=== PATIENT | female | born 1985 | race Caucasian/White ===

== ENCOUNTER 2021-06-16 06:38 | Observation (INO) | payer MEDICAID, SELFPAY ==
[2021-06-16] VITALS (9 sets, daily range): BP systolic 108–148; BP diastolic 59–87; PULSE 72–89; RESP 16–22; TEMP 36.1–37; O2SAT 97–100; BMI 55.7
--- NOTE | 2021-06-16 06:39 | DI.RAD.S_ITS ---
PROCEDURE: XR CHEST 1V INDICATIONS: chest pain TECHNIQUE: One view of the chest was acquired. COMPARISON: None. FINDINGS: Surgical changes and devices: None. Lungs and pleura: Lungs are clear. No pleural effusions or pneumothorax. Mediastinum: Mediastinal contours appear normal. Heart size is normal. Bones and chest wall: No suspicious bony lesions. Overlying soft tissues appear unremarkable. IMPRESSION: No evidence acute pulmonary process. Comment: Final report is concordant with preliminary interpretation provided by [facility]. Dictated by: Raji Hughes M.D. on 06/16/2021 at 8:03 Approved by: Raji Hughes M.D. on 06/16/2021 at 8:04
--- NOTE | 2021-06-16 06:39 | DI.US.S_ITS ---
PROCEDURE: US ABDOMEN LIMITED INDICATIONS: RUQ PAIN TECHNIQUE: Real-time scanning was performed of the abdominal and retroperitoneal organs, with image documentation. COMPARISON: None. FINDINGS: Liver: Liver is at the upper limits of normal measuring 16.9 cm with increased echotexture. Gallbladder: Gallbladder demonstrates a 5 mm focus of increased echogenicity within the neck. Wall thickness is within normal limits measuring 1.6 mm. There is a positive sonographic Avila sign. Biliary ducts: Intrahepatic bile ducts are non-dilated. Extrahepatic bile duct caliber measures 4.6 mm. Normal is 6-7 mm or less in diameter, or 10 mm or less post-cholecystectomy. IMPRESSION: 1. Cholelithiasis without imaging evidence of cholecystitis. It is noted the stone appears to be within the gallbladder neck. No biliary obstruction. Dictated by: Yessenia Lee M.D. on 06/16/2021 at 9:03 Approved by: Yessenia Lee M.D. on 06/16/2021 at 9:04
--- NOTE | 2021-06-16 06:40 | ED.CHESTPAIN ---
HPI - Chest Pain General Stated Complaint: c/p Time Seen by Provider: 06/16/21 06:38 History of Present Illness HPI narrative: Patient is a 35-year-old female history of congestive heart failure Course Orders Ordered: ED Orders 06/16/21 06:39 US abdomen limited Stat XR chest 1V Stat Complete Blood Count AUTO DIFF Stat Comprehensive Metabolic Panel Stat Lipase Stat Troponin & CK Cardiac Panel Stat EKG-12 Lead Stat
[2021-06-16 07:18] LABS: Add Manual Diff / Slide Review NO; Basophils Absolute Auto 0 /uL (0-100); Basophils Percent Auto 0.7 % (0-2); Eosinophils Absolute Auto 100 /uL (0-450); Eosinophils Percent Auto 2.4 % (2-4); Hematocrit 40.6 % (36-46); Hemoglobin 13.7 g/dL (12.0-16.0); Lymphocytes Absolute Auto 2100 /uL (1100-4500); Lymphocytes Percent Auto 47.2 % (25-40); Mean Corpuscular HGB Conc 33.7 % (30-36); Mean Corpuscular Hemoglobin 27.7 PG (26-34); Mean Corpuscular Volume 82.3 fL (80-100); Monocytes Absolute Auto 400 /uL (0-900); Monocytes Percent Auto 8.4 % (3-14); Neutrophils Absolute Auto 1900 /uL (1500-7000); Neutrophils Percent Auto 41.3 % (50-75); Platelet Count 239 X10^3/uL (150-400); Red Blood Cell Count 4.93 X10^6/uL (4.0-5.2); Red Cell Distribution Width 13.5 % (11.6-14.8); White Blood Cell Count 4.5 X10^3/uL (4.5-11.0)
[2021-06-16 07:27] LABS: Alanine Aminotransferase 39 IU/L (<35); Albumin Globulin Ratio 1.3 (1.0-2.8); Alkaline Phosphatase 91 U/L (38-126); Aspartate Aminotransferase 38 IU/L (14-36); BUN Creatinine Ratio 14.3 (6-22); Bilirubin Total 0.5 mg/dL (0.2-1.3); Blood Urea Nitrogen 10 mg/dL (7-17); Calcium 9.9 mg/dL (8.4-10.2); Carbon Dioxide 29 mmol/L (22-32); Chloride 107 mmol/L (98-107); Creatine Kinase 64 U/L (30-135); Estimated Glomerular Filt Rate > 60.0 mL/min (>60); Globulin 3.1 g/dL (1.7-4.1); Glucose 105 mg/dL (70-100); HEMOLYSIS 34 (0-50); Lipase 56 U/L (23-300); Potassium 4.1 mmol/L (3.4-5.1); Sodium 142 mmol/L (137-145); Total Protein 7.1 g/dL (6.3-8.2)
[2021-06-16] MEDS: LORazepam 0.5 MG TABLET 1 MG PO (07:29)
--- NOTE | 2021-06-16 07:37 | ED.ABDPAIN ---
HPI - Abdominal Pain General Chief Complaint: Abdominal Pain Stated Complaint: c/p Time Seen by Provider: 06/16/21 06:38 Source: patient and EMS Mode of arrival: EMS History of Present Illness HPI narrative: 35-year-old female nonsmoker with medical history of CHF, breast cancer (she takes nightly oral chemotherapy) presents with right upper quadrant pain and radiation to her back that has been worsening over the past few days. It gets worse when she moves and when she eats. She is nauseated and has a poor appetite. She denies any gallbladder history. She takes no blood thinners. She has been NPO since 6 or 7:00 p.m. last night. She has nausea but denies any vomiting. Related Data Home Medications Medication Instructions Recorded Confirmed albuterol sulfate 90 mcg/actuation 1 puff INHALATION PRN PRN 06/16/21 06/16/21 aerosol inhaler aspirin 81 mg chewable tablet 81 mg PO DAILY 06/16/21 06/16/21 atorvastatin 40 mg tablet 40 mg PO BEDTIME 06/16/21 06/16/21 exemestane 25 mg tablet 25 mg PO BEDTIME 06/16/21 06/16/21 gabapentin 300 mg capsule 900 mg PO TID 06/16/21 06/16/21 hydrocodone 10 mg-acetaminophen 1 tab PO BEDTIME 06/16/21 06/16/21 325 mg tablet ibuprofen 600 mg tablet 600 mg PO BEDTIME 06/16/21 06/16/21 ketoconazole 2 % topical cream 1 applic TOPICAL PRN PRN 06/16/21 06/16/21 ondansetron HCl 4 mg tablet 4 mg PO PRN PRN 06/16/21 06/16/21 Allergies Allergy/AdvReac Type Severity Reaction Status Date / Time vancomycin Allergy Unknown Verified 06/16/21 15:18 avocado Allergy Anaphylaxis Verified 06/16/21 15:18 citalopram Allergy Hives Verified 06/16/21 15:18 hydroxyzine Allergy Hives Verified 06/16/21 15:18 phenazopyridine Allergy Hives Verified 06/16/21 15:18 ketamine AdvReac Hallucinati Verified 06/16/21 15:18 ng Review of Systems Review of Systems Narrative: GENERAL: Denies chills, fatigue, malaise, fever, sweats. HEENT: Denies sinus pain, ear pain, sore throat, difficulty swallowing, dizziness. RESPIRATORY: Denies dyspnea, cough, wheezing, hemoptysis, sputum. CARDIOVASCULAR: Denies chest pain, palpitations, orthopnea, edema, GASTROINTESTINAL: See HPI : Denies dysuria, frequency, incontinence, hematuria, urinary retention. MUSCULOSKELETAL: denies weakness, joint pain, or bony pain SKIN: Denies rash, skin lesions, or other NEUROLOGIC: Denies weakness, headache, numbness, change in speech, confusion, seizures, incoordination. PSYCHIATRIC: No concerning psychosocial issues. 12 point review of systems is negative except for those stated above Patient History Social History household members: family Smoking Status: Never smoker alcohol intake: current Smoking Status: Never smoker Substance Use Type: does not use Exam Narrative Exam Narrative: GENERAL: [35 year old patient appears stated age. Well-developed patient, in mild distress. Obviously uncomfortable, lying on her side and rubbing her abdomen HEAD: Atraumatic. Normocephalic. EYES: Pupils equal round and reactive. Extraocular motions intact. No scleral icterus. No injection or drainage. ENT: Nose without bleeding, purulent drainage. Throat without erythema, tonsillar hypertrophy or exudate. Airway patent. NECK: Trachea midline. Non tender CARDIOVASCULAR: Regular rate and rhythm without murmurs, gallops, or rubs. RESPIRATORY: Clear to auscultation. Breath sounds equal bilaterally. No wheezes, rales, or rhonchi. GASTROINTESTINAL: Abdomen soft, tender in the epigastrium and right upper quadrant nondistended. EXTREMITIES: No edema or joint tenderness. BACK: Nontender without deformity or crepitance. No flank tenderness. NEURO: AOx3. SKIN: No rash or erythema of visible areas Initial Vital Signs Initial Vital Signs: Vital Signs Temperature 98.3 F 06/16/21 07:12 Pulse Rate 78 06/16/21 07:12 Respiratory Rate 22 06/16/21 07:12 Blood Pressure 148/70 H 06/16/21 07:12 Pulse Oximetry 98 06/16/21 07:12 Course Orders Ordered: ED Orders 06/16/21 07:10 Complete Blood Count AUTO DIFF Stat Comprehensive Metabolic Panel Stat Lipase Stat Troponin & CK Cardiac Panel Stat 06/16/21 09:13 COVID19 -Nasal swab/Pre-Proc Stat Hydromorphone HCl (Hydromorphone 1 Mg Inj) 1 mg IV Q1H PRN PRN Reason: Pain, Moderate (4-6) Last Admin: 06/16/21 14:05 Dose: 1 mg Documented by: PACO Lactated Ringer's (Lactated Ringers) 1,000 mls @ 42 mls/hr IV NOW ONE Stop: 06/17/21 15:38 Last Admin: 06/16/21 15:50 Dose: 42 mls/hr Documented by: CHRISTINA Discontinued Medications Hydromorphone HCl (Hydromorphone 0.5 Mg Inj) 0.5 mg IV NOW ONE Stop: 06/16/21 09:15 Last Admin: 06/16/21 09:46 Dose: 0.5 mg Documented by: IBAN Hydromorphone HCl (Hydromorphone 0.5 Mg Inj) 0.5 mg IV NOW ONE Stop: 06/16/21 10:29 Last Admin: 06/16/21 10:30 Dose: 0.5 mg Documented by: IBAN Lorazepam (Lorazepam 0.5 Mg Tablet) 1 mg PO NOW ONE Stop: 06/16/21 06:44 Last Admin: 06/16/21 07:29 Dose: 1 mg Documented by: LEONORA Ondansetron HCl (Ondansetron 4 Mg/2 Ml Inj) 4 mg IV NOW ONE Stop: 06/16/21 09:15 Last Admin: 06/16/21 09:45 Dose: 4 mg Documented by: IBAN Vital Signs Vital signs: Vital Signs - 8 hr 06/16/21 09:49 06/16/21 10:00 06/16/21 10:30 Pulse Rate 89 74 72 Respiratory Rate 18 16 18 Blood Pressure 133/87 116/71 Pulse Oximetry 100 97 100 MDM - Abdominal Pain Lab Data Result diagrams: 06/16/21 07:10 06/16/21 07:10 Labs: Lab Results 06/16/21 06/16/21 06/16/21 Range/Units 07:10 07:10 09:13 WBC 4.5 (4.5-11.0) X10^3/uL RBC 4.93 (4.0-5.2) X10^6/uL Hgb 13.7 (12.0-16.0) g/dL Hct 40.6 (36-46) % MCV 82.3 (80-100) fL MCH 27.7 (26-34) PG MCHC 33.7 (30-36) % RDW 13.5 (11.6-14.8) % Plt Count 239 (150-400) X10^3/uL Neut % (Auto) 41.3 L (50-75) % Lymph % (Auto) 47.2 H (25-40) % [place] % (Auto) 8.4 (3-14) % Eos % (Auto) 2.4 (2-4) % Baso % (Auto) 0.7 (0-2) % Neut # (Auto) 1900 (1687-4138) /uL Lymph # (Auto) 2100 (1350-7890) /uL [place] # (Auto) 400 (0-900) /uL Eos # (Auto) 100 (0-450) /uL Baso # (Auto) 0 (0-100) /uL Sodium 142 (137-145) mmol/L Potassium 4.1 (3.4-5.1) mmol/L Chloride 107 (98-107) mmol/L Carbon Dioxide 29 (22-32) mmol/L BUN 10 (7-17) mg/dL Creatinine 0.70 (0.52-1.04) mg/dL Estimated GFR > 60.0 (>60) mL/min BUN/Creatinine Ratio 14.3 (6-22) Glucose 105 H (70-100) mg/dL Calcium 9.9 (8.4-10.2) mg/dL Total Bilirubin 0.5 (0.2-1.3) mg/dL AST 38 H (14-36) IU/L ALT 39 H (<35) IU/L Alkaline Phosphatase 91 (38-126) U/L Total Creatine Kinase 64 (30-135) U/L CK-MB (CK-2) TNP CK-MB (CK-2) Rel Index TNP Troponin I < 0.012 (0.01-0.034) ng/mL Total Protein 7.1 (6.3-8.2) g/dL Albumin 4.0 (3.5-5.0) g/dL Globulin 3.1 (1.7-4.1) g/dL Albumin/Globulin Ratio 1.3 (1.0-2.8) Lipase 56 (23-300) U/L SARS-CoV-2 (PCR) Negative (Negative) Point of care testing: Point of Care Testing Test Results Not applicable Imaging Data US - abdomen: Radiologist's Impression: gallstone stuck in the the GB neck Discharge Plan Departure Patient Disposition: Admitted as Observation Clinical Impression: Gallbladder pain Admit Date/Time: 06/16/21 10:35 Admit Provider: Erick Moss
[2021-06-16 07:39] LABS: Troponin I < 0.012 ng/mL (0.01-0.034)
[2021-06-16 09:31] LABS: COVID19 -Nasal RAPID Negative (Negative)
[2021-06-16] MEDS: ONDANSETRON 4 MG/2 ML INJ IV ×2 (09:45→23:25)
[2021-06-16] MEDS: HYDROMORPHONE 0.5 MG INJ IV ×2 (09:46→10:30)
[2021-06-16] MEDS: HYDROMORPHONE 1 MG INJ IV ×4 (14:05→23:25)
[2021-06-16] MEDS: LACTATED RINGERS 1,000 ML 42 ML IV (15:50)
--- NOTE | 2021-06-16 18:37 | PM.HP.1 ---
History of Present Illness History of Present Illness Date Patient Seen: 06/16/21 Time Patient Seen: 18:38 Chief complaint: Epigastric and right upper quadrant pain Narrative: The patient is a 35-year-old morbidly obese woman who presented to the emergency department with epigastric pain and chest pain that radiated around to her back. She was found to have gallstones and a positive Avila sign. She reports that she has not had this type of pain before. An ultrasound showed gallstones. Patient History Comment: Breast cancer, heart failure which she reports is secondary to a medication error at [facility] few years back during which she was given epinephrine Family & Social History Social History: household members family Prior Living Arrangements Mobile home Safety & Behavioral: Feels Safe in Current Yes Environment Been Physically Hurt or No Threatened By a Person Suicidal Ideation Description None Suicide Plan Description No Plan Tobacco & Substance use: Smoking Status Never smoker alcohol intake current alcohol intake frequency holiday/special occasion Substance Use Type does not use Meds Home Medications and Allergies Home Medications Medication Instructions Recorded Confirmed Type albuterol sulfate 90 mcg/actuation 1 puff INHALATION PRN PRN 06/16/21 06/16/21 History aerosol inhaler aspirin 81 mg chewable tablet 81 mg PO DAILY 06/16/21 06/16/21 History atorvastatin 40 mg tablet 40 mg PO BEDTIME 06/16/21 06/16/21 History exemestane 25 mg tablet 25 mg PO BEDTIME 06/16/21 06/16/21 History gabapentin 300 mg capsule 900 mg PO TID 06/16/21 06/16/21 History hydrocodone 10 mg-acetaminophen 1 tab PO BEDTIME 06/16/21 06/16/21 History 325 mg tablet ibuprofen 600 mg tablet 600 mg PO BEDTIME 06/16/21 06/16/21 History ketoconazole 2 % topical cream 1 applic TOPICAL PRN PRN 06/16/21 06/16/21 History ondansetron HCl 4 mg tablet 4 mg PO PRN PRN 06/16/21 06/16/21 History Allergies Allergy/AdvReac Type Severity Reaction Status Date / Time vancomycin Allergy Unknown Verified 06/16/21 15:18 avocado Allergy Anaphylaxis Verified 06/16/21 15:18 citalopram Allergy Hives Verified 06/16/21 15:18 hydroxyzine Allergy Hives Verified 06/16/21 15:18 phenazopyridine Allergy Hives Verified 06/16/21 15:18 ketamine AdvReac Hallucinati Verified 06/16/21 15:18 ng Exam Vital Signs (past 8 hours): - 06/16/21 11:00 06/16/21 11:20 06/16/21 15:29 Temperature 97.0 F L 98.3 F Pulse Rate 72 77 88 Respiratory Rate 18 18 17 Blood Pressure 112/74 116/59 L 114/73 Pulse Oximetry 98 99 100 Oxygen Delivery Method Room Air Const Nutritional Appearance: obese Resp Effort & Inspection: normal respiratory effort GI Palpation: tender (In the right upper quadrant) Neuro Speech: speech normal Psych Affect: anxious affect Objective Labs Result Diagrams: 06/16/21 07:10 06/16/21 07:10 Labs: Laboratory Results - last 24 hr 06/16/21 06/16/21 06/16/21 07:10 07:10 09:13 WBC 4.5 RBC 4.93 Hgb 13.7 Hct 40.6 MCV 82.3 MCH 27.7 MCHC 33.7 RDW 13.5 Plt Count 239 Neut % (Auto) 41.3 L Lymph % (Auto) 47.2 H [place] % (Auto) 8.4 Eos % (Auto) 2.4 Baso % (Auto) 0.7 Neut # (Auto) 1900 Lymph # (Auto) 2100 [place] # (Auto) 400 Eos # (Auto) 100 Baso # (Auto) 0 Sodium 142 Potassium 4.1 Chloride 107 Carbon Dioxide 29 BUN 10 Creatinine 0.70 Estimated GFR > 60.0 BUN/Creatinine Ratio 14.3 Glucose 105 H Calcium 9.9 Total Bilirubin 0.5 AST 38 H ALT 39 H Alkaline Phosphatase 91 Total Creatine Kinase 64 CK-MB (CK-2) TNP CK-MB (CK-2) Rel Index TNP Troponin I < 0.012 Total Protein 7.1 Albumin 4.0 Globulin 3.1 Albumin/Globulin Ratio 1.3 Lipase 56 SARS-CoV-2 (PCR) Negative Assessment & Plan Assessment and plan (1) Gallstones: Status: Acute Plan We will plan to perform a laparoscopic cholecystectomy tomorrow morning we reviewed the risks and benefits and she would like to proceed. COVID-19 COVID-19 status: Negative Result date/Date tested (Pos, Neg/Pending): 06/16/21 Time Spent With Patient Critical Care time: I spent a total of [] minutes of critical care time on this patient's care today; this time is exclusive of procedural time.
[2021-06-16] MEDS: LACTATED RINGERS 1,000 ML 100 ML IV (19:05)
[2021-06-17] VITALS (12 sets, daily range): BP systolic 94–149; BP diastolic 53–94; PULSE 67–113; RESP 14–22; TEMP 36.3–36.7; O2SAT 93–100; BMI 55.7
--- NOTE | 2021-06-17 | PATH_ITS ---
[facility] Accession Number: [id number] No. of containers..01 Tissue . 01 Material submitted: . gallbladder - GALLBLADDER . 02 Diagnosis: Gallbladder, Cholecystectomy: Chronic cholecystitis with cholesterolosis. No choleliths identified. Negative for dysplasia and malignancy. [facility] 06/21/2021 1513 Local . 02 Electronically signed: . Ashley Gibson MD, Pathologist NPI- [id number] . 01 Gross description: . The specimen is received in formalin, labeled with the patient's name and gallbladder, and consists of a 5.5 x 1.7 x 1.5 cm gallbladder with a stapled 0.4 cm in diameter cystic duct. The serosa is reyna-lepe and focally hemorrhagic. Opening reveals bile. Choleliths are not identified. The mucosa is green, bile-tinged and smooth. Masses/polyps are not identified. Wall thickness is 0.1 cm. Lead Cook sections are submitted to include the en face cystic duct margin (blue) and bank representative sections of the gallbladder wall. . A1: Cystic duct margin, 1 piece. A2: Lead Cook sections of the gallbladder, 3 pieces. ([id number]) /MRV 06/20/2021 1007 Local . 02 Pathologist provided ICD-10: K81.1 . 02 CPT . 465773 Specimen Comment: A courtesy copy of this report has been sent to [facility] Pathology Performed at: [address] [facility] Cytology [address] [place] [address], [place], [place] [id number] MD Holland Doty MD Phone: [phone] Performed at: 02 [facility] [address] [place] [address] [id number] Gibson MD Phone: [phone]
[2021-06-17] MEDS: HYDROCODONE/ACET 5/325 TABLET 1 TAB PO ×2 (00:05→15:03)
[2021-06-17] MEDS: HYDROMORPHONE 1 MG INJ IV ×6 (02:43→20:27)
[2021-06-17 08:59] LABS: Add Manual Diff / Slide Review NO; Basophils Absolute Auto 0 /uL (0-100); Basophils Percent Auto 0.3 % (0-2); Eosinophils Absolute Auto 100 /uL (0-450); Eosinophils Percent Auto 3.6 % (2-4); Hematocrit 38.8 % (36-46); Lymphocytes Absolute Auto 1200 /uL (1100-4500); Lymphocytes Percent Auto 45.6 % (25-40); Mean Corpuscular HGB Conc 33.6 % (30-36); Mean Corpuscular Hemoglobin 27.5 PG (26-34); Mean Corpuscular Volume 81.8 fL (80-100); Monocytes Absolute Auto 300 /uL (0-900); Neutrophils Absolute Auto 1000 /uL (1500-7000); Neutrophils Percent Auto 38.5 % (50-75); Platelet Count 213 X10^3/uL (150-400); Red Blood Cell Count 4.75 X10^6/uL (4.0-5.2); Red Cell Distribution Width 13.5 % (11.6-14.8); White Blood Cell Count 2.6 X10^3/uL (4.5-11.0)
[2021-06-17 09:16] LABS: Alanine Aminotransferase 43 IU/L (<35); Albumin 3.6 g/dL (3.5-5.0); Albumin Globulin Ratio 1.3 (1.0-2.8); Alkaline Phosphatase 88 U/L (38-126); Aspartate Aminotransferase 39 IU/L (14-36); BUN Creatinine Ratio 12.3 (6-22); Bilirubin Total 0.6 mg/dL (0.2-1.3); Blood Urea Nitrogen 10 mg/dL (7-17); Calcium 9.2 mg/dL (8.4-10.2); Carbon Dioxide 30 mmol/L (22-32); Chloride 106 mmol/L (98-107); Estimated Glomerular Filt Rate > 60.0 mL/min (>60); Globulin 2.8 g/dL (1.7-4.1); Glucose 98 mg/dL (70-100); HEMOLYSIS < 15 (0-50); Sodium 139 mmol/L (137-145); Total Protein 6.4 g/dL (6.3-8.2)
--- NOTE | 2021-06-17 09:27 | CM.DANOTE ---
DCP: Case received, EMR reviewed and met with patient. Introduced self and role. Was able to obtain informatin regarding patient's baseline activity status prior to hospitalization. DCP assessment completed with information currently available. Patient is a 35 year old female who admitted yesterday morning to the care of the hospitalist team. PCP: Dr. Patel. Payer: confirmed: Medicaid. Patient came to the hospital via ambulance. She initially was driving, and developed some chest pain. According to patient, she then pulled over and called 911. She stated, she was worried, because she has a cardiac history. Patient was diagnosed with cholechysitis, and is scheduled to have a laparoscopic cholecystectomy today. Met with patient in her room. She is alert and oriented. She resides with room mates in [place]. 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 P: DCP to continue to follow. Patient will be having her surgery today. She should be able to go home when she is deemed medically stable. Marie Paniagua RN/Air Conditioning Supervisor Discharge Planning/Care Management CM Discharge Assessment Start: 06/17/21 09:26 Freq: Status: Active Protocol: Document 06/17/21 09:26 (Rec: 06/17/21 09:27 [id number]) Discharge Planning Assessment Assigned Factory Supervisor Marie Paniagua RN/Air Conditioning Supervisor Advance Directives? No History Provided By Patient,Medical Record Prior Living Arrangements Mobile home Household Members family Type of transporation used prior to Drives own vehicle admit Independent with ADL's Yes Is patient alert and oriented? Yes Caregiver for Another No Barriers to Discharge No Discharge Plan Home Transportation Arrangement Friend or family Referrals Initiated None needed Whiteboard Updated in Patient Room with Yes name and ext. # of Factory Supervisor Review Status In Process Next Review Type Continued Stay Review
[2021-06-17] MEDS: LACTATED RINGERS 1,000 ML 42 ML IV ×2 (10:36→15:09)
[2021-06-17] MEDS: ACETAMINOPHEN 325 MG TABLET 975 MG PO (12:03)
[2021-06-17] MEDS: SCOPOLAMINE 1 PATCH TOP (12:11)
[2021-06-17] MEDS: APREPITANT 40 MG CAPSULE PO (12:11)
[2021-06-17] MEDS: CEFAZOLIN 2 GM/20 ML SYRINGE IV (12:35)
--- NOTE | 2021-06-17 13:04 | SUR.OPER ---
Supine on padded OR bed, head on pillow, safety belt at thigh, left arm padded and tucked at side. Right arm secured on padded arm board <90 degrees abduction. Legs uncrossed. Padded footboard in place. Tape over blanket to secure lower legs.
[2021-06-17] MEDS: LIDOCAINE 1% W/EPI 20 ML INJ (13:21)
[2021-06-17] MEDS: BUPIVACAINE 0.5% (PF) VIAL 30 ML INJ (13:23)
[2021-06-17] MEDS: LACTATED RINGERS 1,000 ML 100 ML IV (13:40)
--- NOTE | 2021-06-17 14:16 | PM.OP.1 ---
Operative Date/Time/Diagnoses Date of procedure: 06/17/21 Time of procedure: 14:16 Pre-op diagnosis: Symptomatic cholelithiasis Post-op diagnosis: same Procedure & Clinicians Procedure: Laparoscopic cholecystectomy Same procedure as scheduled: Yes Indications: Gallstones Surgeon: Erick Moss Anesthesia Type: General Operative Notes Procedure in detail: The patient was given preoperative antibiotic. The patient was brought to the operating room, placed on the table in the supine position. General endotracheal anesthesia was induced. The abdomen was prepped and draped. A time-out was performed. We made a 1 cm infraumbilical incision. We dissected down to the base of the umbilical stalk using cautery. We grasped the umbilical stalk with a David clamp to elevate the abdominal wall. We scored the fascia in the midline with cautery 1 cm. We pierced the peritoneum with a Peon clamp. The Sylvester port was placed and the abdomen was insufflated to 15 mmHg. A 10 mm 30 degree laparoscopic was inserted. There was no evidence of any injury from the entry. Next, we placed 5 mm ports in the subxiphoid position and right upper quadrant at the midclavicular line and anterior axillary line. Patient was then positioned in reverse Trendelenburg and the table was tilted to the left. The gallbladder was grasped at the dome and retracted cephalad. There were some adhesions of omentum to the dome of the gallbladder which were carefully dissected with cautery to allow full retraction of the gallbladder. We then dissected the cystic structures with a combination of hook cautery and blunt dissection. We obtained a critical view. We placed hemoclips on the cystic duct and artery and divided the cystic duct and artery sharply between the clips. The gallbladder was then dissected off the liver and placed in a specimen retrieval bag. We irrigated the right upper quadrant and all the aspirate returned clear. We then removed the 5 mm ports under direct vision we removed the Sylvester port. We then injected some local into the fascia and closed the fascia with 2 interrupted 0 Vicryl sutures. The skin incisions were closed with 4 Monocryl and Steri-Strips were applied. Band-Aids were applied over the Steri-Strips. EBL: 10 mL Specimen: Gallbladder Post-operative Condition: stable Disposition: PACU
[2021-06-17] MEDS: fentaNYL 100 MCG/2 ML INJ IV ×2 (14:55→15:07)
[2021-06-17] MEDS: OXYCODONE IR 5 MG TABLET PO ×2 (15:19→16:20)
[2021-06-17] MEDS: HYDROMORPHONE 2 MG INJ IV ×2 (15:23→15:39)
[2021-06-17] MEDS: LACTATED RINGERS 1,000 ML 120 ML IV (17:10)
[2021-06-17] MEDS: GABAPENTIN 300 MG CAPSULE 900 MG PO ×2 (18:13→20:27)
--- NOTE | 2021-06-17 18:45 | PC.NURSE ---
Received from pacu, post devon, lap dressing with spots of drainage and intact. Pt up to the bathroom, and scant amt of bloody fluid draining from umbilicus incision. Dr. Moss made aware. Pressure dressing applied. No further bloody fluid seen.
[2021-06-17] MEDS: ATORVASTATIN 20 MG TABLET 40 MG PO (20:26)
[2021-06-17] MEDS: EXEMESTANE 25 MG TABLET PO (20:26)
[2021-06-17] MEDS: IBUPROFEN 600 MG TABLET PO (20:26)
[2021-06-17] MEDS: HYDROCODONE/ACET 10/325 TABLET 1 TAB PO (20:27)
[2021-06-18] MEDS: HYDROCODONE/ACET 5/325 TABLET 1 TAB PO ×4 (00:12→13:31)
[2021-06-18] MEDS: HYDROMORPHONE 1 MG INJ IV ×2 (00:13→05:59)
[2021-06-18 00:18] VITALS: BP 104/58; PULSE 65; RESP 18; TEMP 36.6; O2SAT 93
[2021-06-18] MEDS: LACTATED RINGERS 1,000 ML 120 ML IV (02:10)
[2021-06-18 04:24] VITALS: BP 99/66; PULSE 63; RESP 18; TEMP 36.4; O2SAT 94
[2021-06-18 09:30] VITALS: BP 121/73; PULSE 63; RESP 20; TEMP 36.1; O2SAT 96
[2021-06-18] MEDS: ASPIRIN EC 81 MG TABLET PO (09:30)
[2021-06-18] MEDS: GABAPENTIN 300 MG CAPSULE 900 MG PO (09:30)
--- NOTE | 2021-06-18 09:39 | PM.PN.1 ---
Subjective Subjective Date Patient Seen: 06/18/21 Time Patient Seen: 09:40 Interval history: Still complaining of right upper quadrant pain, still on Dilaudid. She has tolerated clear liquids and wants to advance her diet. She had some oozing from umbilical and one of the right upper quadrant port sites overnight but this was addressed with a pressure dressing. Exam Vital Signs (past 8 hours): - 06/18/21 04:24 06/18/21 09:30 Temperature 97.5 F L 97 F L Pulse Rate 63 63 Respiratory Rate 18 20 Blood Pressure 99/66 121/73 Pulse Oximetry 94 96 Oxygen Delivery Method Room Air Oxygen Flow Rate 0 Narrative Exam Narrative: Anxious No active bleeding from incisions Objective Labs Result Diagrams: 06/17/21 08:35 06/17/21 08:35 [facility] Medical History (Updated 06/18/21 @ 09:42 by Erick Moss MD) Breast cancer, right breast Social History household members: family Smoking Status: Never smoker alcohol intake: current Assessment & Plan Assessment and plan (1) Postoperative examination: Status: Acute Plan Advanced diet and transition to oral pain meds Mobilize Plan for discharge later today. Time Spent With Patient Critical Care time: I spent a total of [] minutes of critical care time on this patient's care today; this time is exclusive of procedural time.
--- NOTE | 2021-06-18 11:08 | PC.NURSE ---
Assess- Patient is alert and oriented x three. into see patient and took dressings off, she has ss in place and incision sites look good. Given 1 vicodin for complaints of 8/10 pain. This has been helpful to patient and she just got done ambulating in the halls and is in the shower now.
[2021-06-18 12:28] VITALS: BP 108/66; PULSE 80; RESP 18; TEMP 37.2; O2SAT 94
== END 2021-06-18 17:56 | disposition home or self-care (01) ==
LOC: ED 08:49 → AC 10:35
PROVIDERS: Emergency Medicine; Admitting Provider Surgery; Emergency Provider Emergency Medicine; PCP Family Medicine; Referring Provider Emergency Medicine; Visit Provider Surgery
PROC: 0FT44ZZ Resection of Gallbladder, Percutaneous Endoscopic Approach (ICD-10-PCS; CPT 47562; principal; 2021-06-17 11:45)
DX: K81.1 Chronic cholecystitis (principal); C50.919 Malignant neoplasm of unspecified site of unspecified female breast; I50.9 Heart failure, unspecified; E66.01 Morbid (severe) obesity due to excess calories; Z68.43 Body mass index [BMI] 50.0-59.9, adult; F41.9 Anxiety disorder, unspecified; J45.909 Unspecified asthma, uncomplicated; F43.10 Post-traumatic stress disorder, unspecified; Z20.822 Contact with and (suspected) exposure to COVID-19
CPT/HCPCS: 47562; 36415; 71045; 76705; 80053; 82550; 83690; 84484; 85025; 87635; 93005; 93010; 96361; 96374; 96375; 96376; 99219; 99284; C9803; G0378; J0330; J0690; J1100; J1170; J1885; J2250; J2405; J2704; J3010; J8501

== ENCOUNTER 2021-08-16 08:26 | Emergency (ER) | payer MEDICAID, SELFPAY ==
[2021-06-21 11:26] VITALS: BMI 55.7
[2021-08-16] VITALS (9 sets, daily range): BP systolic 120–135; BP diastolic 73–94; PULSE 71–89; RESP 15; TEMP 36.6; O2SAT 79–100; BMI 51.0
[2021-08-16 12:13] LABS: Add Manual Diff / Slide Review NO; Basophils Absolute Auto 0 /uL (0-100); Basophils Percent Auto 0.2 % (0-2); Eosinophils Absolute Auto 100 /uL (0-450); Eosinophils Percent Auto 2.6 % (2-4); Hemoglobin 13.2 g/dL (12.0-16.0); Lymphocytes Absolute Auto 1500 /uL (1100-4500); Lymphocytes Percent Auto 36.2 % (25-40); Mean Corpuscular HGB Conc 33.9 % (30-36); Mean Corpuscular Hemoglobin 28.2 PG (26-34); Mean Corpuscular Volume 83.3 fL (80-100); Monocytes Absolute Auto 300 /uL (0-900); Monocytes Percent Auto 7.9 % (3-14); Neutrophils Absolute Auto 2200 /uL (1500-7000); Neutrophils Percent Auto 53.1 % (50-75); Platelet Count 237 X10^3/uL (150-400); Red Blood Cell Count 4.69 X10^6/uL (4.0-5.2); Red Cell Distribution Width 14.6 % (11.6-14.8); White Blood Cell Count 4.1 X10^3/uL (4.5-11.0)
[2021-08-16 12:18] LABS: Alanine Aminotransferase 41 IU/L (<35); Albumin 4.2 g/dL (3.5-5.0); Albumin Globulin Ratio 1.4 (1.0-2.8); Alkaline Phosphatase 117 U/L (38-126); Aspartate Aminotransferase 41 IU/L (14-36); BUN Creatinine Ratio 13.8 (6-22); Bilirubin Total 0.5 mg/dL (0.2-1.3); Blood Urea Nitrogen 9 mg/dL (7-17); Calcium 9.4 mg/dL (8.4-10.2); Carbon Dioxide 27 mmol/L (22-32); Chloride 105 mmol/L (98-107); Estimated Glomerular Filt Rate > 60.0 mL/min (>60); Globulin 3.1 g/dL (1.7-4.1); Glucose 106 mg/dL (70-100); HEMOLYSIS < 15 (0-50); Potassium 4.2 mmol/L (3.4-5.1); Sodium 138 mmol/L (137-145); Total Protein 7.3 g/dL (6.3-8.2)
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
--- NOTE | 2021-08-16 12:52 | DI.CT.S_ITS ---
PROCEDURE: CT LE LT W CON INDICATIONS: r/o abscess TECHNIQUE: After the administration of intravenous contrast, 3 mm axial sections acquired of the left thigh, with coronal and sagittal reformats. COMPARISON: None. FINDINGS: Image quality: Excellent. Bones: Alignment of left hip and left femur is anatomic. No fracture or dislocation. No evidence of avascular necrosis of femoral head. No suspicious intraosseous lesion. No bony erosion or cortical destruction is seen. Soft tissues: Linear calcifications are noted along anterolateral aspect of left gluteus medius muscle likely represent changes related to old injury. No intramuscular fluid collection is seen. No discrete abscess collection is seen in left thigh soft tissue. No enhancing soft tissue mass is seen. No other abnormal soft tissue calcifications. Visualized portion of pelvis shows no free fluid or free air. IMPRESSION: 1. No evidence of soft tissue or intramuscular abscess collection. No area of abnormal enhancement. 2. No fracture or dislocation is seen in left hip and left thigh. No CT evidence of osteomyelitis. No avascular necrosis of femoral head. Dictated by: Michael Brooks M.D. on 08/16/2021 at 13:31 Approved by: Michael Brooks M.D. on 08/16/2021 at 13:40
[2021-08-16] MEDS: KETOROLAC 30 MG/ML VIAL IV (13:04)
[2021-08-16 13:05] LABS: INR 1.1 (0.9-1.3); Prothrombin Time 12.5 SECONDS (10.1-12.7)
[2021-08-16] MEDS: SODIUM CHLORIDE 0.9% 1,000 ML 1000 ML IV (13:05)
[2021-08-16 13:11] LABS: Alanine Aminotransferase 44 IU/L (<35); Albumin 4.1 g/dL (3.5-5.0); Albumin Globulin Ratio 1.2 (1.0-2.8); Alkaline Phosphatase 112 U/L (38-126); Aspartate Aminotransferase 45 IU/L (14-36); BUN Creatinine Ratio 12.9 (6-22); Bilirubin Total 0.7 mg/dL (0.2-1.3); Blood Urea Nitrogen 9 mg/dL (7-17); Calcium 9.6 mg/dL (8.4-10.2); Carbon Dioxide 29 mmol/L (22-32); Chloride 105 mmol/L (98-107); Estimated Glomerular Filt Rate > 60.0 mL/min (>60); Globulin 3.3 g/dL (1.7-4.1); Glucose 102 mg/dL (70-100); HEMOLYSIS 23 (0-50); Lactate (Lactic Acid) 0.9 mmol/L (0.7-2.1); Potassium 3.9 mmol/L (3.4-5.1); Sodium 138 mmol/L (137-145); Total Protein 7.4 g/dL (6.3-8.2)
[2021-08-16 13:28] LABS: Procalcitonin 0.05 ng/mL (<0.5)
[2021-08-21 05:10] LABS: Acinetobacter baumannii Not Detected (Not Detect); E. coli Not Detected (Not Detect); Enterobacter cloacae complex Not Detected (Not Detect); Enterobacteriaceae species Not Detected (Not Detect); Enterococcus species Not Detected (Not Detect); Haemophilus influenzae Not Detected (Not Detect); Listeria monocytogenes Not Detected (Not Detect); Neisseria meningitidis Not Detected (Not Detect); Proteus species Not Detected (Not Detect); Pseudomonas aeruginosa Not Detected (Not Detect); Serratia marcescens Not Detected (Not Detect); Staphylococcus species Not Detected (Not Detect); Streptococcus agalactiae (Gr B Not Detected (Not Detect); Streptococcus pneumonia Not Detected (Not Detect); Streptococcus pyogenes (Gr A) Not Detected (Not Detect); Streptococcus species Not Detected (Not Detect)
[2021-08-21 05:11] LABS: Candida albicans Not Detected (Not Detect); Candida glabrata Not Detected (Not Detect); Candida krusei Not Detected (Not Detect); Candida parapsilosis Not Detected (Not Detect); Candida tropicalis Not Detected (Not Detect)
== END 2021-08-16 15:11 | disposition home or self-care (01) ==
PROVIDERS: Emergency Medicine; Emergency Provider Physician Assistant; PCP Family Medicine
DX: M25.552 Pain in left hip (principal); G89.29 Other chronic pain
CPT/HCPCS: 36415; 73701; 80053; 83605; 84145; 85025; 85610; 87040; 87150; 87205; 96374; 99284; J1885

== ENCOUNTER 2021-09-08 06:19 | Emergency (ER) | payer MEDICAID, SELFPAY ==
[2021-06-21 11:26] VITALS: BMI 55.7
[2021-09-08] VITALS (7 sets, daily range): BP systolic 121–153; BP diastolic 90–111; PULSE 80–112; RESP 16–24; TEMP 36.6; O2SAT 97–100; BMI 51.5
--- NOTE | 2021-09-08 06:32 | DI.RAD.S_ITS ---
PROCEDURE: XR CHEST 1V INDICATIONS: eval for PNA TECHNIQUE: One view of the chest was acquired. COMPARISON: [facility], , XR CHEST 1V, 06/16/2021, 6:39. FINDINGS: Surgical changes and devices: None. Lungs and pleura: Interstitial prominence. No focal consolidation. No pleural effusions or pneumothorax. Mediastinum: Mediastinal contours appear normal. Heart size is normal. Bones and chest wall: No suspicious bony lesions. Overlying soft tissues appear unremarkable. IMPRESSION: No acute cardiopulmonary disease. No significant discrepancy with the overnight stocker radiology preliminary report. Dictated by: Zainab Matute M.D. on 09/08/2021 at 7:47 Approved by: Zaianb Matute M.D. on 09/08/2021 at 7:47
[2021-09-08] MEDS: dexAMETHasone 4 MG TABLET 12 MG PO (06:42)
[2021-09-08] MEDS: ALBUTEROL 2.5 MG/3 ML NEB (ADULT) INH (06:43)
--- NOTE | 2021-09-08 07:56 | ED_ITS ---
HPI - URI/Sore Throat General Chief Complaint: Upper Respiratory Symptoms Stated Complaint: thinks walking phenomnia Time Seen by Provider: 09/08/21 06:31 Source: patient Mode of arrival: Ambulatory History of Present Illness HPI Narrative: Patient is a 35-year-old female with history of breast cancer formally undergone chemo radiation and is now taking exemestane, asthma, hyperlipidemia presenting with a week and a half cough and difficulty breathing. She says she has been using her albuterol multiple times along with her nebulizer not getting any relief. She has a nonproductive cough no fever chills. She says that she frequently has sepsis in the infection in her left leg but that seems to be controlled now. She feels like she gets short of breath with minimal exertion. She has been hospitalized for her asthma before but never intubated. She feels like her chest is tight and she cannot breathe. Related Data Home Medications Medication Instructions Recorded Confirmed albuterol sulfate 90 mcg/actuation 1 puff INHALATION PRN PRN 06/16/21 06/30/21 aerosol inhaler aspirin 81 mg chewable tablet 81 mg PO DAILY 06/16/21 06/30/21 atorvastatin 40 mg tablet 40 mg PO BEDTIME 06/16/21 06/30/21 exemestane 25 mg tablet 25 mg PO BEDTIME 06/16/21 06/30/21 gabapentin 300 mg capsule 900 mg PO TID 06/16/21 06/30/21 hydrocodone 10 mg-acetaminophen 1 tab PO BEDTIME 06/16/21 06/30/21 325 mg tablet ibuprofen 600 mg tablet 600 mg PO BEDTIME 06/16/21 06/30/21 ketoconazole 2 % topical cream 1 applic TOPICAL PRN PRN 06/16/21 06/30/21 ondansetron HCl 4 mg tablet 4 mg PO PRN PRN 06/16/21 06/30/21 Previous Rx's Medication Instructions Recorded hydrocodone 5 mg-acetaminophen 325 1 tab PO Q8H PRN #10 tab 06/18/21 mg tablet prednisone 10 mg tablet 10 mg PO DAILY #30 tab 09/08/21 Allergies Allergy/AdvReac Type Severity Reaction Status Date / Time vancomycin Allergy Unknown Verified 08/16/21 09:06 avocado Allergy Anaphylaxis Verified 08/16/21 09:06 citalopram Allergy Hives Verified 08/16/21 09:06 hydroxyzine Allergy Hives Verified 08/16/21 09:06 phenazopyridine Allergy Hives Verified 08/16/21 09:06 ketamine AdvReac Hallucinati Verified 08/16/21 09:06 ng Review of Systems Review of Systems Narrative: GENERAL: Denies chills, fatigue, malaise, fever, sweats, travel HEENT: Denies sinus pain, ear pain, sore throat, difficulty swallowing, neck pain RESPIRATORY: See HPI CARDIOVASCULAR: Denies chest pain, palpitations, orthopnea, edema GASTROINTESTINAL: Denies nausea, vomiting, abdominal pain, diarrhea, constipation, melena. : Denies dysuria, frequency, incontinence, hematuria, urinary retention, flank pain. MUSCULOSKELETAL: Denies weakness, joint pain, or bony pain SKIN: No rash, no erythema, no pruritus NEUROLOGIC: Denies weakness, dizziness, headache, numbness, change in speech, confusion PSYCHIATRIC: No concerning psychosocial issues. 12 point review of systems is negative except for those stated above and HPI Patient History Medical History Breast cancer, right breast Social History household members: family Smoking Status: Never smoker alcohol intake: current Smoking Status: Never smoker alcohol intake frequency: holidays/special occasions only Substance Use Type: does not use Exam Initial Vital Signs Initial Vital Signs: Vital Signs Temperature 97.9 F 09/08/21 06:25 Pulse Rate 96 H 09/08/21 06:25 Respiratory Rate 21 09/08/21 06:25 Blood Pressure 153/111 H 09/08/21 06:25 Pulse Oximetry 97 09/08/21 06:25 GENERAL: Alert 35-year-old female BMI 51 HEENT: Head atraumatic,EOMI, pupils reactive, face symmetric, moist mucous membranes CARDIOVASCULAR: Regular rate and rhythm without murmurs, rubs or gallops. RESPIRATORY decreased breath sounds bilaterally, no wheezing rales or rhonchi, No difficulty breathing or speaking slight upper airway expiratory week ABDOMEN: Soft, nontender. Normoactive bowel sounds all 4 quadrants. No guarding or rebound. EXTREMITIES: Normal range of motion, no clubbing or edema. Neurovascularly intact NEUROLOGICAL: Alert and oriented x4.Normal gait and speech. SKIN: Warm, dry, no laceration, no petechiae, no rashes or lesions. Course Orders Ordered: ED Orders 09/08/21 06:32 XR chest 1V Stat RT Consult Eval and Treat Now 09/08/21 08:01 EKG-12 Lead Stat 09/08/21 08:15 Complete Blood Count AUTO DIFF Stat 09/08/21 08:25 COVID19 -Nasal RAPID/Pre-Proc Stat 09/08/21 08:55 Comprehensive Metabolic Panel Stat D Dimer Stat Lipase Stat NT-proBNP (BNP-Adult 18+) Stat Procalcitonin Stat Troponin & CK Cardiac Panel Stat Sodium Chloride (Normal Saline 0.9%) 1,000 mls @ 1,000 mls/hr IV CONT DEDRICK Last Infusion: 09/08/21 09:46 Dose: 0 mls/hr Documented by: Admin: 09/08/21 08:43 Dose: 1,000 mls/hr Documented by: LORNA Discontinued Medications Albuterol (Albuterol 2.5 Mg/3 Ml Neb (Adult)) 2.5 mg INH NOW ONE Stop: 09/08/21 06:34 Last Admin: 09/08/21 06:43 Dose: 2.5 mg Documented by: RAJWINDER Albuterol/Ipratropium (Albuterol/Ipratropium 3 Ml Ampul) 3 ml INH NOW ONE Stop: 09/08/21 08:03 Last Admin: 09/08/21 08:26 Dose: 3 ml Documented by: CHU Dexamethasone (Dexamethasone 4 Mg Tablet) 12 mg PO NOW ONE Stop: 09/08/21 06:34 Last Admin: 09/08/21 06:42 Dose: 12 mg Documented by: RAJWINDER Vital Signs Vital signs: Vital Signs - 8 hr 09/08/21 06:25 09/08/21 06:43 09/08/21 08:26 Temperature 97.9 F Pulse Rate 96 H 96 H 80 Respiratory Rate 21 24 16 Blood Pressure 153/111 H Pulse Oximetry 97 97 99 09/08/21 09:28 09/08/21 09:29 09/08/21 09:30 Temperature Pulse Rate 112 H 105 H Respiratory Rate 18 Blood Pressure 121/90 Pulse Oximetry 97 100 100 MDM - URI/Sore Throat Lab Data Result diagrams: 09/08/21 08:15 04/14/22 08:55 Labs: Lab Results 09/08/21 09/08/21 09/08/21 Range/Units 08:15 08:25 08:55 WBC 4.7 (4.5-11.0) X10^3/uL RBC 4.89 (4.0-5.2) X10^6/uL Hgb 13.8 (12.0-16.0) g/dL Hct 41.4 (36-46) % MCV 84.7 (80-100) fL MCH 28.2 (26-34) PG MCHC 33.3 (30-36) % RDW 14.7 (11.6-14.8) % Plt Count 269 (150-400) X10^3/uL Neut % (Auto) 58.3 (50-75) % Lymph % (Auto) 32.1 (25-40) % [place] % (Auto) 7.2 (3-14) % Eos % (Auto) 2.1 (2-4) % Baso % (Auto) 0.3 (0-2) % Neut # (Auto) 2700 (2036-1222) /uL Lymph # (Auto) 1500 (8154-1702) /uL [place] # (Auto) 300 (0-900) /uL Eos # (Auto) 100 (0-450) /uL Baso # (Auto) 0 (0-100) /uL D-Dimer < 200 (<230) ng/mL Sodium (137-145) mmol/L Potassium (3.4-5.1) mmol/L Chloride (98-107) mmol/L Carbon Dioxide (22-32) mmol/L BUN (7-17) mg/dL Creatinine (0.52-1.04) mg/dL Estimated GFR (>60) mL/min BUN/Creatinine Ratio (6-22) Glucose (70-100) mg/dL Calcium (8.4-10.2) mg/dL Total Bilirubin (0.2-1.3) mg/dL AST (14-36) IU/L ALT (<35) IU/L Alkaline Phosphatase (38-126) U/L Total Creatine Kinase (30-135) U/L CK-MB (CK-2) CK-MB (CK-2) Rel Index Troponin I (0.01-0.034) ng/mL NT-Pro-B Natriuret Pep (<125) pg/mL Total Protein (6.3-8.2) g/dL Albumin (3.5-5.0) g/dL Globulin (1.7-4.1) g/dL Albumin/Globulin Ratio (1.0-2.8) Lipase (23-300) U/L Procalcitonin (<0.5) ng/mL SARS-CoV-2 (PCR) Negative (Negative) 09/08/21 Range/Units 08:55 WBC (4.5-11.0) X10^3/uL RBC (4.0-5.2) X10^6/uL Hgb (12.0-16.0) g/dL Hct (36-46) % MCV (80-100) fL MCH (26-34) PG MCHC (30-36) % RDW (11.6-14.8) % Plt Count (150-400) X10^3/uL Neut % (Auto) (50-75) % Lymph % (Auto) (25-40) % [place] % (Auto) (3-14) % Eos % (Auto) (2-4) % Baso % (Auto) (0-2) % Neut # (Auto) (7588-8368) /uL Lymph # (Auto) (2930-4871) /uL [place] # (Auto) (0-900) /uL Eos # (Auto) (0-450) /uL Baso # (Auto) (0-100) /uL D-Dimer (<230) ng/mL Sodium 143 (137-145) mmol/L Potassium 4.0 (3.4-5.1) mmol/L Chloride 110 H (98-107) mmol/L Carbon Dioxide 27 (22-32) mmol/L BUN 9 (7-17) mg/dL Creatinine 0.76 (0.52-1.04) mg/dL Estimated GFR > 60 (>60) mL/min BUN/Creatinine Ratio 11.8 (6-22) Glucose 122 H (70-100) mg/dL Calcium 9.2 (8.4-10.2) mg/dL Total Bilirubin 0.5 (0.2-1.3) mg/dL AST 32 (14-36) IU/L ALT 34 (<35) IU/L Alkaline Phosphatase 119 (38-126) U/L Total Creatine Kinase 79 (30-135) U/L CK-MB (CK-2) TNP CK-MB (CK-2) Rel Index TNP Troponin I < 0.012 (0.01-0.034) ng/mL NT-Pro-B Natriuret Pep 66 (<125) pg/mL Total Protein 7.5 (6.3-8.2) g/dL Albumin 4.1 (3.5-5.0) g/dL Globulin 3.4 (1.7-4.1) g/dL Albumin/Globulin Ratio 1.2 (1.0-2.8) Lipase 83 (23-300) U/L Procalcitonin 0.05 (<0.5) ng/mL SARS-CoV-2 (PCR) (Negative) Imaging Data Chest x-ray: Radiologist's Impression: Launch?Image [address] [address] XRay Report Signed Patient: Chelsie Unger MR#: [id number] : 1985 Acct:[id number] Age/Sex: 35 / F Date of Service: 09/08/21 Loc: ED Accession Number: [id number] ?? Procedure: XR chest 1V Ordering Provider: Emory Fuentes D.O. PROCEDURE:? XR CHEST 1V ? INDICATIONS:? eval for PNA ? TECHNIQUE:? One view of the chest was acquired.? ? COMPARISON:? [facility], , XR CHEST 1V, 06/16/2021, 6:39. ? FINDINGS:? ? Surgical changes and devices:? None.? ? Lungs and pleura:? Interstitial prominence.? No focal consolidation.? No pleural effusions or pneumothorax.? ? Mediastinum:? Mediastinal contours appear normal.? Heart size is normal.? ? Bones and chest wall:? No suspicious bony lesions.? Overlying soft tissues appear unremarkable.? ? IMPRESSION:? No acute cardiopulmonary disease. ? ? No significant discrepancy with the manufacturing shift supervisor radiology preliminary report. ? ? Dictated by: Zainab Matute M.D. on 09/08/2021 at 7:47 ? ? Approved by: Zainab Matute M.D. on 09/08/2021 at 7:47 ? ECG Data Interpretation: Normal sinus rhythm rate 75 OK interval 140 QRS [address] changes T-wave inversion noted in lead 3 only to previous EKG in May of 2021 MDM Narrative Medical decision making narrative: Patient has a history of asthma and breast cancer current workup is negative. No sign of congestive heart failure with normal BNP and negative chest x-ray, D-dimer is negative unlikely to be pulmonary embolism. She has received a couple treatments here in the ED she is overall doing better if she is not requiring oxygen. At this time will put her on a steroid taper dose and encourage albuterol home. Discharge Plan Departure Patient Disposition: Home Clinical Impression: Asthma exacerbation Instructions: DI for Asthma -- Adult Activity Restrictions/Additional Instructions: *You have been diagnosed with asthma exacerbation *What to do: At this time blood work and x-ray overall reassuring. No need for antibiotics at this time. Continue to use her albuterol inhaler and nebulizer. Hopefully the steroids will help as well. *Continue to take medications as directed Prednisone 40 mg once a day for 3 days, 30 mg for 3 days, 20 mg for 3 days, 10 mg for 3 days Albuterol every 4 hours either nebulizer or inhaler *Follow up with your primary care provider in 2-3 days or call [phone] *Return to ER if you should have increasing shortness of breath chest tightness, fever or any new, worsening or concerning symptoms Prescriptions: New prednisone 10 mg tablet 10 mg PO DAILY Qty: 30 0RF Rx Instructions: day 1-3: 40 mg once a day day 4-6: 30 mg once a day day 7-9: 20 mg once a day day 10-12: 10 mg once a day No Action gabapentin 300 mg capsule 900 mg PO TID 0RF Label Comments: Take 3 capsules (900mg) by mouth twice daily and 4 capsules (1200mg) daily at night aspirin 81 mg tablet,chewable 81 mg PO DAILY 0RF Label Comments: Take 1 tablet (81 mg total) by mouth daily Chewable. albuterol sulfate 90 mcg/actuation HFA aerosol inhaler 1 puff INHALATION PRN PRN (Reason: Shortness Of Breath Or Wheezing) 0RF Label Comments: Inhale 2 puffs into the lungs every 6 (six) hours as needed for Wheezing or Shortness of Breath atorvastatin 40 mg tablet 40 mg PO BEDTIME 0RF Label Comments: Take 1 tablet (40 mg total) by mouth nightly exemestane 25 mg tablet 25 mg PO BEDTIME 0RF Label Comments: Take (1) tablet by mouth once daily. hydrocodone-acetaminophen 10-325 mg tablet 1 tab PO BEDTIME 0RF Label Comments: Take 1 tablet by mouth nightly as needed for moderate pain ibuprofen 600 mg tablet 600 mg PO BEDTIME 0RF Label Comments: Take 1 tablet (600 mg total) by mouth nightly as needed for mild pain ketoconazole 2 % cream 1 applic TOPICAL PRN PRN (Reason: Rash) 0RF Label Comments: Apply twice daily to rash in groin ondansetron HCl 4 mg tablet 4 mg PO PRN PRN (Reason: Nausea) 0RF Label Comments: Take 1 tablet (4 mg total) by mouth every 8 (eight) hours as needed for Nausea or Vomiting hydrocodone-acetaminophen 5-325 mg tablet 1 tab PO Q8H PRN (Reason: pain) Qty: 10 0RF Referrals: Eben Patel MD [Primary Care Provider] - Stand Alone Forms: Work Release Note
[2021-09-08] MEDS: ALBUTEROL/IPRATROPIUM 3 ML AMPUL INH (08:26)
[2021-09-08 08:29] LABS: Add Manual Diff / Slide Review NO; Basophils Absolute Auto 0 /uL (0-100); Basophils Percent Auto 0.3 % (0-2); Eosinophils Absolute Auto 100 /uL (0-450); Eosinophils Percent Auto 2.1 % (2-4); Hematocrit 41.4 % (36-46); Hemoglobin 13.8 g/dL (12.0-16.0); Lymphocytes Absolute Auto 1500 /uL (1100-4500); Lymphocytes Percent Auto 32.1 % (25-40); Mean Corpuscular HGB Conc 33.3 % (30-36); Mean Corpuscular Hemoglobin 28.2 PG (26-34); Mean Corpuscular Volume 84.7 fL (80-100); Monocytes Absolute Auto 300 /uL (0-900); Monocytes Percent Auto 7.2 % (3-14); Neutrophils Absolute Auto 2700 /uL (1500-7000); Neutrophils Percent Auto 58.3 % (50-75); Platelet Count 269 X10^3/uL (150-400); Red Blood Cell Count 4.89 X10^6/uL (4.0-5.2); Red Cell Distribution Width 14.7 % (11.6-14.8); White Blood Cell Count 4.7 X10^3/uL (4.5-11.0)
[2021-09-08] MEDS: SODIUM CHLORIDE 0.9% 1,000 ML 1000 ML IV (08:43)
[2021-09-08 09:15] LABS: COVID19 -Nasal RAPID Negative (Negative)
[2021-09-08 09:19] LABS: Alanine Aminotransferase 34 IU/L (<35); Albumin 4.1 g/dL (3.5-5.0); Albumin Globulin Ratio 1.2 (1.0-2.8); Alkaline Phosphatase 119 U/L (38-126); Aspartate Aminotransferase 32 IU/L (14-36); BUN Creatinine Ratio 11.8 (6-22); Bilirubin Total 0.5 mg/dL (0.2-1.3); Blood Urea Nitrogen 9 mg/dL (7-17); Calcium 9.2 mg/dL (8.4-10.2); Carbon Dioxide 27 mmol/L (22-32); Chloride 110 mmol/L (98-107); Creatine Kinase 79 U/L (30-135); D Dimer < 200 ng/mL (<230); Estimated Glomerular Filt Rate > 60 mL/min (>60); Globulin 3.4 g/dL (1.7-4.1); Glucose 122 mg/dL (70-100); HEMOLYSIS < 15 (0-50); Lipase 83 U/L (23-300); Sodium 143 mmol/L (137-145); Total Protein 7.5 g/dL (6.3-8.2)
[2021-09-08 09:32] LABS: NT-proBNP (BNP-Adult 18+) 66 pg/mL (<125); Troponin I < 0.012 ng/mL (0.01-0.034)
[2021-09-08 09:36] LABS: Procalcitonin 0.05 ng/mL (<0.5)
== END 2021-09-08 10:20 | disposition home or self-care (01) ==
PROVIDERS: Emergency Provider Emergency Medicine; PCP Family Medicine
DX: J45.901 Unspecified asthma with (acute) exacerbation (principal); Z20.822 Contact with and (suspected) exposure to COVID-19
CPT/HCPCS: 36415; 71045; 80053; 82550; 83690; 83880; 84145; 84484; 85025; 85379; 87635; 93005; 93010; 94640; 96360; 99284; C9803; J7613

== ENCOUNTER 2021-11-24 14:37 | Observation (INO) | payer MEDICAID, SELFPAY ==
[2021-06-21 11:26] VITALS: BMI 55.7
[2021-11-24] VITALS (19 sets, daily range): BP systolic 101–139; BP diastolic 50–83; PULSE 61–91; RESP 18–20; TEMP 36.7; O2SAT 94–98; BMI 53.5
--- NOTE | 2021-11-24 15:32 | DI.CT.S_ITS ---
PROCEDURE: CT HEAD/BRAIN WO CON INDICATIONS: GLF TECHNIQUE: Noncontrast 4.5 mm thick angled axial sections acquired from the foramen magnum to the vertex, with coronal and sagittal reformats. For radiation dose reduction, the following was used: automated exposure control, adjustment of mA and/or kV according to patient size. COMPARISON: Outside Film, CT, CT HEAD WITHOUT CONTRAST, 04/13/2021, 18:23. FINDINGS: Image quality: Excellent. CSF spaces: Basal cisterns are patent. No extra-axial fluid collections. Ventricles are normal in size and shape. Brain: No midline shift. No intracranial masses or hemorrhage. Steve-white matter interface is normal. Skull and face: Calvarium and visualized facial bones are intact, without suspicious lesions. Sinuses: Visualized sinuses and mastoids are clear. IMPRESSION: No acute intracranial finding. Dictated by: Dakota Tobin M.D. on 11/24/2021 at 16:13 Approved by: Dakota Tobin M.D. on 11/24/2021 at 16:14
--- NOTE | 2021-11-24 15:33 | ED.FALL ---
HPI - Fall <Nancy Harvey DO - Last Filed: 11/26/21 07:13> General Chief Complaint: Fall Stated Complaint: Loss of feeling rt side of body, fainted, SOB Time Seen by Provider: 11/24/21 15:06 Source: patient Mode of arrival: Ambulatory History of Present Illness HPI Narrative: Patient is a 35-year-old female history of breast cancer, has hypertension presenting today with onset of left-sided weakness. She says she was walking across a parking lot when suddenly her left side went numb and she fell and woke up on the ground. She now is able to move everything she is not sure how long she did therefore. She was feeling well earlier today. She has no chest pain or palpitations. She is worried she has some nodules on her lungs concerned that there may be recurrence cancer. Related Data Home Medications Medication Instructions Recorded Confirmed albuterol sulfate 90 mcg/actuation 1 puff inhalation PRN PRN 06/16/21 11/25/21 aerosol inhaler Shortness Of Breath Or Wheezing aspirin 81 mg chewable tablet 81 mg PO DAILY 06/16/21 11/25/21 atorvastatin 40 mg tablet 40 mg PO BEDTIME 06/16/21 11/25/21 exemestane 25 mg tablet 25 mg PO BEDTIME 06/16/21 11/25/21 gabapentin 300 mg capsule 900 mg PO TID 06/16/21 11/25/21 hydrocodone 10 mg-acetaminophen 1 tab PO BEDTIME 06/16/21 11/25/21 325 mg tablet ibuprofen 600 mg tablet 600 mg PO BEDTIME 06/16/21 11/25/21 Previous Rx's Medication Instructions Recorded hydrocodone 5 mg-acetaminophen 325 1 tab PO Q8H PRN pain #10 tabs 11/26/21 mg tablet Allergies Allergy/AdvReac Type Severity Reaction Status Date / Time vancomycin Allergy Unknown Verified 08/16/21 09:06 avocado Allergy Anaphylaxis Verified 08/16/21 09:06 citalopram Allergy Hives Verified 08/16/21 09:06 hydroxyzine Allergy Hives Verified 08/16/21 09:06 phenazopyridine Allergy Hives Verified 08/16/21 09:06 ketamine AdvReac Hallucinati Verified 08/16/21 09:06 ng Review of Systems <DO Annie Chambers Last Filed: 11/26/21 07:13> Review of Systems Narrative: GENERAL: Denies chills, fatigue, malaise, fever, sweats, travel HEENT: Denies sinus pain, ear pain, sore throat, difficulty swallowing, neck pain RESPIRATORY: Denies dyspnea, cough, wheezing, hemoptysis, sputum. CARDIOVASCULAR: Denies chest pain, palpitations, orthopnea, edema GASTROINTESTINAL: Denies nausea, vomiting, abdominal pain, diarrhea, constipation, melena. : Denies dysuria, frequency, incontinence, hematuria, urinary retention, flank pain. MUSCULOSKELETAL: Denies weakness, joint pain, or bony pain SKIN: No rash, no erythema, no pruritus NEUROLOGIC: see HPI PSYCHIATRIC: No concerning psychosocial issues. 12 point review of systems is negative except for those stated above and HPI Patient History <Nancy Harvey DO - Last Filed: 11/26/21 07:13> Medical History Breast cancer, right breast Social History household members: other Smoking Status: Never smoker alcohol intake: current Smoking Status: Never smoker alcohol intake frequency: holidays/special occasions only Substance Use Type: does not use Exam <Nancy Harvey DO - Last Filed: 11/26/21 07:13> Initial Vital Signs Initial Vital Signs: Vital Signs Pulse Rate 83 11/24/21 15:16 Respiratory Rate 20 11/24/21 15:16 Blood Pressure 127/75 11/24/21 15:16 Pulse Oximetry 97 11/24/21 15:16 Oxygen Delivery Method 11/24/21 15:16 GENERAL: Alert [age]-year-old female BMI 53 and in no acute distress. HEENT: Head atraumatic,EOMI, pupils reactive, face symmetric, moist mucous membranes CARDIOVASCULAR: Regular rate and rhythm without murmurs, rubs or gallops. RESPIRATORY: Breath sounds equal bilaterally, no wheezes rales or rhonchi. ABDOMEN: Soft, nontender. Normoactive bowel sounds all 4 quadrants. No guarding or rebound. EXTREMITIES: Normal range of motion, no clubbing or edema. Neurovascularly intact NEUROLOGICAL: Alert and oriented x4.Normal gait and speech. Cranial nerves II through XII grossly intact. Good [id number], good [id number], strength equal bilaterally, no dysarthria or aphasia, sensation decreased on left side both arm and, no visual changes, no facial droop SKIN: Warm, dry, no laceration, no petechiae, no rashes or lesions. <Ammon Ramirez MD - Last Filed: 11/30/21 08:46> Initial Vital Signs Initial Vital Signs: Vital Signs Pulse Rate 83 11/24/21 15:16 Respiratory Rate 20 11/24/21 15:16 Blood Pressure 127/75 11/24/21 15:16 Pulse Oximetry 97 11/24/21 15:16 Oxygen Delivery Method 11/24/21 15:16 Scores <Nancy Harvey DO - Last Filed: 11/26/21 07:13> NIH Stroke Scale Level of Conciousness: Alert, keenly responsive Ask month/age: Answers both questions correctly. Open/close eyes, close hand: Performs both tasks correctly Best gaze horizontal: Normal Visual murray: No visual loss Facial palsy: Normal symetrical movement Left arm drift: No drift for full 10 sec Right arm drift: No drift for full 10 sec Left leg drift: No drift for full 5 sec Right leg drift: No drift for full 5 sec Limb ataxia: Absent Sensory on face/arms/legs: Mild to moderate sensory loss, can tell touch Best language: No aphasia, normal Dysarthria: Normal Extinction or inattention: No abnormality Total NIH Stroke scale score: 1 <Ammon Ramirez MD - Last Filed: 11/30/21 08:46> NIH Stroke Scale Total NIH Stroke scale score: 1 Course <Nancy Harvey DO - Last Filed: 11/26/21 07:13> Orders Ordered: Discontinued Medications Acetaminophen (Acetaminophen 325 Mg Tablet) 650 mg PO Q6HR PRN PRN Reason: Fever/Mild Pain (1-3) Hydrocodone Bitart/Acetaminophen (Hydrocodone/Acet 5/325 Tablet) 2 tab PO Q4HR PRN PRN Reason: Pain, Severe (7-10) Last Admin: 11/26/21 03:13 Dose: 2 tab Documented By: Admin: 11/25/21 18:00 Dose: 2 tab Documented By: Admin: 11/25/21 12:34 Dose: 2 tab Documented By: CSD Hydrocodone Bitart/Acetaminophen (Hydrocodone/Acet 10/325 Tablet) 1 tab PO BEDTIME DEDRICK Last Admin: 11/25/21 20:45 Dose: 1 tab Documented By: WILLIAN Aspirin (Aspirin Ec 81 Mg Tablet) 81 mg PO DAILY [facility] Last Admin: 11/26/21 09:36 Dose: 81 mg Documented By: Admin: 11/25/21 09:51 Dose: 81 mg Documented By: CHADWICK Aspirin (Aspirin 81 Mg Chew Tab) 81 mg PO DAILY [facility] Atorvastatin Calcium (Atorvastatin 20 Mg Tablet) 40 mg PO BEDTIME [facility] Atorvastatin Calcium (Atorvastatin 20 Mg Tablet) 40 mg PO BEDTIME [facility] Last Admin: 11/25/21 20:45 Dose: 40 mg Documented By: WILLIAN Clopidogrel Bisulfate (Clopidogrel 75 Mg Tablet) 75 mg PO DAILY [facility] Last Admin: 11/25/21 09:51 Dose: 75 mg Documented By: CHADWICK Diphenhydramine HCl (Diphenhydramine 50 Mg/Ml Vial) 25 mg IV NOW ONE Stop: 11/24/21 17:38 Last Admin: 11/24/21 18:07 Dose: 25 mg Documented By: BRAD Enoxaparin Sodium (Enoxaparin 40 Mg/0.4 Ml Syringe) 40 mg SUBCUT DAILY [facility] Last Admin: 11/26/21 09:36 Dose: 40 mg Documented By: Admin: 11/25/21 09:51 Dose: 40 mg Documented By: CHADWICK Exemestane (Exemestane 25 Mg Tablet) 25 mg PO BEDTIME [facility] Last Admin: 11/25/21 20:45 Dose: 25 mg Documented By: WILLIAN Gabapentin (Gabapentin 300 Mg Capsule) 900 mg PO TID [facility] Last Admin: 11/26/21 09:36 Dose: 900 mg Documented By: Admin: 11/25/21 20:45 Dose: 900 mg Documented By: Admin: 11/25/21 15:56 Dose: 900 mg Documented By: CHADWICK Hydromorphone HCl (Hydromorphone 1 Mg Inj) 1 mg IV NOW ONE Stop: 11/24/21 19:15 Last Admin: 11/24/21 19:16 Dose: 1 mg Documented By: LATASHA(2) Hydromorphone HCl (Hydromorphone 1 Mg Inj) 1 mg IV NOW ONE Stop: 11/24/21 23:03 Last Admin: 11/24/21 23:07 Dose: 1 mg Documented By: LATASHA(2) Sodium Chloride (Normal Saline 0.9%) 1,000 mls @ 1,000 mls/hr IV BOLUS ONE Stop: 11/24/21 18:36 Last Infusion: 11/24/21 23:30 Dose: 0 mls/hr Documented By: LATASHA(2) Infusion: 11/24/21 20:38 Dose: 0 mls/hr Documented By: LATASHA(2) Admin: 11/24/21 18:08 Dose: 1,000 mls/hr Documented By: BRAD Ibuprofen (Ibuprofen 600 Mg Tablet) 600 mg PO NOW ONE Stop: 11/25/21 15:21 Last Admin: 11/25/21 17:22 Dose: 600 mg Documented By: LATASHA Ketorolac Tromethamine (Ketorolac 30 Mg/Ml Vial) 15 mg IV NOW ONE Stop: 11/24/21 17:38 Last Admin: 11/24/21 18:06 Dose: 15 mg Documented By: BRAD Ketorolac Tromethamine (Ketorolac 30 Mg/Ml Vial) 15 mg IV Q6H [facility] Stop: 11/28/21 02:59 Ketorolac Tromethamine (Ketorolac 30 Mg/Ml Vial) 15 mg IV Q6H PRN PRN Reason: Pain, Moderate (4-6) Stop: 11/28/21 02:59 Last Admin: 11/25/21 04:28 Dose: 15 mg Documented By: ADRIANNA Lorazepam (Lorazepam 2 Mg/Ml Inj) 1 mg IV NOW ONE Stop: 11/25/21 00:37 Last Admin: 11/25/21 00:40 Dose: 1 mg Documented By: LATASHA(2) Morphine Sulfate (Morphine 2 Mg/Ml Inj) 2 mg IV NOW ONE Stop: 11/25/21 13:40 Last Admin: 11/25/21 14:12 Dose: 2 mg Documented By: CHADWICK Naproxen (Naproxen 250 Mg Tablet) 500 mg PO BIDWM DEDRICK Ondansetron HCl (Ondansetron 4 Mg Odt) 4 mg PO Q8HR PRN PRN Reason: Nausea And Vomiting Last Admin: 11/26/21 09:36 Dose: 4 mg Documented By: SAMIRA Ondansetron HCl (Ondansetron 4 Mg/2 Ml Inj) 4 mg IV NOW ONE Stop: 11/25/21 13:40 Last Admin: 11/25/21 14:12 Dose: 4 mg Documented By: CHADWICK Prochlorperazine (Prochlorperazine 10 Mg/2 Ml Vial) 10 mg IV NOW ONE Stop: 11/24/21 17:38 Last Admin: 11/24/21 18:01 Dose: 10 mg Documented By: BRAD Tramadol HCl (Tramadol 50 Mg Tablet) 50 mg PO QID PRN PRN Reason: Pain, Moderate (4-6) Last Admin: 11/25/21 22:35 Dose: 50 mg Documented By: WILLIAN Vital Signs Vital signs: Vital Signs - 8 hr 11/24/21 18:01 11/24/21 18:20 11/24/21 18:40 Pulse Rate 79 71 77 Respiratory Rate 20 20 Blood Pressure 119/58 L 119/56 L 128/74 Pulse Oximetry 98 97 Oxygen Delivery Method Room Air Room Air 11/24/21 19:00 11/24/21 19:20 11/24/21 19:41 Pulse Rate 84 68 66 Respiratory Rate 18 Blood Pressure 121/73 130/77 119/57 L Pulse Oximetry 97 96 96 Oxygen Delivery Method 11/24/21 20:01 11/24/21 20:20 11/24/21 20:40 Pulse Rate 66 65 68 Respiratory Rate 20 18 20 Blood Pressure 116/58 L 116/59 L 112/59 L Pulse Oximetry 94 97 96 Oxygen Delivery Method 11/24/21 21:01 11/24/21 21:21 11/24/21 21:21 Pulse Rate 66 66 Respiratory Rate 20 Blood Pressure 110/57 L 108/50 L Pulse Oximetry 96 96 Oxygen Delivery Method 11/24/21 21:30 11/24/21 21:41 11/24/21 21:41 Pulse Rate 63 90 Respiratory Rate Blood Pressure 120/55 L Pulse Oximetry 96 97 Oxygen Delivery Method <Ammon Ramirez MD - Last Filed: 11/30/21 08:46> Course Course Narrative: 8:30 p.m.. Sign out from dr harvey, awaiting for any improvement with migraine cocktail medication. If no improvement then will need admit for TIA workup. Orders Ordered: Discontinued Medications Acetaminophen (Acetaminophen 325 Mg Tablet) 650 mg PO Q6HR PRN PRN Reason: Fever/Mild Pain (1-3) Hydrocodone Bitart/Acetaminophen (Hydrocodone/Acet 5/325 Tablet) 2 tab PO Q4HR PRN PRN Reason: Pain, Severe (7-10) Last Admin: 11/26/21 03:13 Dose: 2 tab Documented By: Admin: 11/25/21 18:00 Dose: 2 tab Documented By: Admin: 11/25/21 12:34 Dose: 2 tab Documented By: CHADWICK Hydrocodone Bitart/Acetaminophen (Hydrocodone/Acet 10/325 Tablet) 1 tab PO BEDTIME [facility] Last Admin: 11/25/21 20:45 Dose: 1 tab Documented By: WILLIAN Aspirin (Aspirin Ec 81 Mg Tablet) 81 mg PO DAILY [facility] Last Admin: 11/26/21 09:36 Dose: 81 mg Documented By: Admin: 11/25/21 09:51 Dose: 81 mg Documented By: CHADWICK Aspirin (Aspirin 81 Mg Chew Tab) 81 mg PO DAILY [facility] Atorvastatin Calcium (Atorvastatin 20 Mg Tablet) 40 mg PO BEDTIME [facility] Atorvastatin Calcium (Atorvastatin 20 Mg Tablet) 40 mg PO BEDTIME [facility] Last Admin: 11/25/21 20:45 Dose: 40 mg Documented By: WILLIAN Clopidogrel Bisulfate (Clopidogrel 75 Mg Tablet) 75 mg PO DAILY [facility] Last Admin: 11/25/21 09:51 Dose: 75 mg Documented By: CHADWICK Diphenhydramine HCl (Diphenhydramine 50 Mg/Ml Vial) 25 mg IV NOW ONE Stop: 11/24/21 17:38 Last Admin: 11/24/21 18:07 Dose: 25 mg Documented By: BRAD Enoxaparin Sodium (Enoxaparin 40 Mg/0.4 Ml Syringe) 40 mg SUBCUT DAILY [facility] Last Admin: 11/26/21 09:36 Dose: 40 mg Documented By: Admin: 11/25/21 09:51 Dose: 40 mg Documented By: CHADWICK Exemestane (Exemestane 25 Mg Tablet) 25 mg PO BEDTIME [facility] Last Admin: 11/25/21 20:45 Dose: 25 mg Documented By: WILLIAN Gabapentin (Gabapentin 300 Mg Capsule) 900 mg PO TID [facility] Last Admin: 11/26/21 09:36 Dose: 900 mg Documented By: Admin: 11/25/21 20:45 Dose: 900 mg Documented By: Admin: 11/25/21 15:56 Dose: 900 mg Documented By: CHADWICK Hydromorphone HCl (Hydromorphone 1 Mg Inj) 1 mg IV NOW ONE Stop: 11/24/21 19:15 Last Admin: 11/24/21 19:16 Dose: 1 mg Documented By: LATASHA(2) Hydromorphone HCl (Hydromorphone 1 Mg Inj) 1 mg IV NOW ONE Stop: 11/24/21 23:03 Last Admin: 11/24/21 23:07 Dose: 1 mg Documented By: LATASHA(2) Sodium Chloride (Normal Saline 0.9%) 1,000 mls @ 1,000 mls/hr IV BOLUS ONE Stop: 11/24/21 18:36 Last Infusion: 11/24/21 23:30 Dose: 0 mls/hr Documented By: OW(2) Infusion: 11/24/21 20:38 Dose: 0 mls/hr Documented By: LATASHA(2) Admin: 11/24/21 18:08 Dose: 1,000 mls/hr Documented By: BRAD Ibuprofen (Ibuprofen 600 Mg Tablet) 600 mg PO NOW ONE Stop: 11/25/21 15:21 Last Admin: 11/25/21 17:22 Dose: 600 mg Documented By: LATASHA Ketorolac Tromethamine (Ketorolac 30 Mg/Ml Vial) 15 mg IV NOW ONE Stop: 11/24/21 17:38 Last Admin: 11/24/21 18:06 Dose: 15 mg Documented By: BRAD Ketorolac Tromethamine (Ketorolac 30 Mg/Ml Vial) 15 mg IV Q6H [facility] Stop: 11/28/21 02:59 Ketorolac Tromethamine (Ketorolac 30 Mg/Ml Vial) 15 mg IV Q6H PRN PRN Reason: Pain, Moderate (4-6) Stop: 11/28/21 02:59 Last Admin: 11/25/21 04:28 Dose: 15 mg Documented By: ADRIANNA Lorazepam (Lorazepam 2 Mg/Ml Inj) 1 mg IV NOW ONE Stop: 11/25/21 00:37 Last Admin: 11/25/21 00:40 Dose: 1 mg Documented By: LATASHA(2) Morphine Sulfate (Morphine 2 Mg/Ml Inj) 2 mg IV NOW ONE Stop: 11/25/21 13:40 Last Admin: 11/25/21 14:12 Dose: 2 mg Documented By: CHADWICK Naproxen (Naproxen 250 Mg Tablet) 500 mg PO BIDWM DEDRICK Ondansetron HCl (Ondansetron 4 Mg Odt) 4 mg PO Q8HR PRN PRN Reason: Nausea And Vomiting Last Admin: 11/26/21 09:36 Dose: 4 mg Documented By: SAMIRA Ondansetron HCl (Ondansetron 4 Mg/2 Ml Inj) 4 mg IV NOW ONE Stop: 11/25/21 13:40 Last Admin: 11/25/21 14:12 Dose: 4 mg Documented By: CHADWICK Prochlorperazine (Prochlorperazine 10 Mg/2 Ml Vial) 10 mg IV NOW ONE Stop: 11/24/21 17:38 Last Admin: 11/24/21 18:01 Dose: 10 mg Documented By: BRAD Tramadol HCl (Tramadol 50 Mg Tablet) 50 mg PO QID PRN PRN Reason: Pain, Moderate (4-6) Last Admin: 11/25/21 22:35 Dose: 50 mg Documented By: WILLIAN Reevaluation(s) Reevaluation #1: Patient agrees for admit. No improvement with migraine pain medication. Time: 23:31 Consultations Consultation #1: Spoke with hospitalist, Sveta, will admit patient Time: 23:31 Vital Signs Vital signs: Vital Signs - 8 hr 11/24/21 18:01 11/24/21 18:20 11/24/21 18:40 Pulse Rate 79 71 77 Respiratory Rate 20 20 Blood Pressure 119/58 L 119/56 L 128/74 Pulse Oximetry 98 97 Oxygen Delivery Method Room Air Room Air 11/24/21 19:00 11/24/21 19:20 11/24/21 19:41 Pulse Rate 84 68 66 Respiratory Rate 18 Blood Pressure 121/73 130/77 119/57 L Pulse Oximetry 97 96 96 Oxygen Delivery Method 11/24/21 20:01 11/24/21 20:20 11/24/21 20:40 Pulse Rate 66 65 68 Respiratory Rate 20 18 20 Blood Pressure 116/58 L 116/59 L 112/59 L Pulse Oximetry 94 97 96 Oxygen Delivery Method 11/24/21 21:01 11/24/21 21:21 11/24/21 21:21 Pulse Rate 66 66 Respiratory Rate 20 Blood Pressure 110/57 L 108/50 L Pulse Oximetry 96 96 Oxygen Delivery Method 11/24/21 21:30 11/24/21 21:41 11/24/21 21:41 Pulse Rate 63 90 Respiratory Rate Blood Pressure 120/55 L Pulse Oximetry 96 97 Oxygen Delivery Method MDM - Fall <Nancy Harvey, DO - Last Filed: 11/26/21 07:13> Lab Data Result diagrams: 11/24/21 15:55 11/24/21 15:55 Labs: Lab Results 11/24/21 11/24/21 11/24/21 Range/Units 15:11 15:11 15:55 WBC 7.1 (4.5-11.0) X10^3/uL RBC 4.86 (4.0-5.2) X10^6/uL Hgb 13.8 (12.0-16.0) g/dL Hct 40.5 (36-46) % MCV 83.4 (80-100) fL MCH 28.4 (26-34) PG MCHC 34.0 (30-36) % RDW 13.2 (11.6-14.8) % Plt Count 287 (150-400) X10^3/uL Neut % (Auto) 70.7 (50-75) % Lymph % (Auto) 21.6 L (25-40) % [place] % (Auto) 5.8 (3-14) % Eos % (Auto) 1.6 L (2-4) % Baso % (Auto) 0.3 (0-2) % Neut # (Auto) 5000 (2370-8919) /uL Lymph # (Auto) 1500 (9284-1933) /uL [place] # (Auto) 400 (0-900) /uL Eos # (Auto) 100 (0-450) /uL Baso # (Auto) 0 (0-100) /uL D-Dimer (<230) ng/mL Sodium (137-145) mmol/L Potassium (3.4-5.1) mmol/L Chloride (98-107) mmol/L Carbon Dioxide (22-32) mmol/L BUN (7-17) mg/dL Creatinine (0.52-1.04) mg/dL Estimated GFR (>60) mL/min BUN/Creatinine Ratio (6-22) Glucose (70-100) mg/dL Calcium (8.4-10.2) mg/dL Total Bilirubin (0.2-1.3) mg/dL AST (14-36) IU/L ALT (<35) IU/L Alkaline Phosphatase (38-126) U/L Total Creatine Kinase (30-135) U/L CK-MB (CK-2) CK-MB (CK-2) Rel Index Troponin I (0.01-0.034) ng/mL Total Protein (6.3-8.2) g/dL Albumin (3.5-5.0) g/dL Globulin (1.7-4.1) g/dL Albumin/Globulin Ratio (1.0-2.8) Urine Color Yellow Urine Appearance Clear Urine pH 7.0 (4.5-8.0) Ur Specific [place] 1.010 (1.000-1.035) Urine Protein Negative (Negative) Urine Glucose (UA) Negative (Negative) g/dL Urine Ketones Negative (NEGATIVE) Urine Occult Blood Negative (Negative) Urine Nitrate Negative (Negative) Urine Bilirubin Negative (NEGATIVE) Urine Urobilinogen 0.2 (0.2) E.U./dL Ur Leukocyte Esterase 2+ H (NEGATIVE) Urine RBC 0-1/hpf (0-5/HPF) Urine WBC 10-30/hpf H (0-5/HPF) Ur Squamous Epith Cells 0-1 /hpf (0-5/HPF) Amorphous Sediment 1+ Urine Bacteria Few (2-10) H (None) Urine Mucus 1+ H (Negative) Ur Culture Indicated? Specimen cultured Urine Test Negative (Negative) SARS-CoV-2 (PCR) (Negative) 11/24/21 11/24/21 11/24/21 Range/Units 15:55 15:55 15:55 WBC (4.5-11.0) X10^3/uL RBC (4.0-5.2) X10^6/uL Hgb (12.0-16.0) g/dL Hct (36-46) % MCV (80-100) fL MCH (26-34) PG MCHC (30-36) % RDW (11.6-14.8) % Plt Count (150-400) X10^3/uL Neut % (Auto) (50-75) % Lymph % (Auto) (25-40) % [place] % (Auto) (3-14) % Eos % (Auto) (2-4) % Baso % (Auto) (0-2) % Neut # (Auto) (8782-3929) /uL Lymph # (Auto) (7699-4860) /uL [place] # (Auto) (0-900) /uL Eos # (Auto) (0-450) /uL Baso # (Auto) (0-100) /uL D-Dimer 231 H (<230) ng/mL Sodium 141 (137-145) mmol/L Potassium 4.2 (3.4-5.1) mmol/L Chloride 102 (98-107) mmol/L Carbon Dioxide 32 (22-32) mmol/L BUN 12 (7-17) mg/dL Creatinine 0.84 (0.52-1.04) mg/dL Estimated GFR > 60 (>60) mL/min BUN/Creatinine Ratio 14.3 (6-22) Glucose 95 (70-100) mg/dL Calcium 9.8 (8.4-10.2) mg/dL Total Bilirubin 0.4 (0.2-1.3) mg/dL AST 38 H (14-36) IU/L ALT 32 (<35) IU/L Alkaline Phosphatase 144 H (38-126) U/L Total Creatine Kinase 83 (30-135) U/L CK-MB (CK-2) TNP CK-MB (CK-2) Rel Index TNP Troponin I < 0.012 (0.01-0.034) ng/mL Total Protein 7.7 (6.3-8.2) g/dL Albumin 4.6 (3.5-5.0) g/dL Globulin 3.1 (1.7-4.1) g/dL Albumin/Globulin Ratio 1.5 (1.0-2.8) Urine Color Urine Appearance Urine pH (4.5-8.0) Ur Specific [place] (1.000-1.035) Urine Protein (Negative) Urine Glucose (UA) (Negative) g/dL Urine Ketones (NEGATIVE) Urine Occult Blood (Negative) Urine Nitrate (Negative) Urine Bilirubin (NEGATIVE) Urine Urobilinogen (0.2) E.U./dL Ur Leukocyte Esterase (NEGATIVE) Urine RBC (0-5/HPF) Urine WBC (0-5/HPF) Ur Squamous Epith Cells (0-5/HPF) Amorphous Sediment Urine Bacteria (None) Urine Mucus (Negative) Ur Culture Indicated? Urine Test (Negative) SARS-CoV-2 (PCR) (Negative) 06/30/22 Range/Units 23:00 WBC (4.5-11.0) X10^3/uL RBC (4.0-5.2) X10^6/uL Hgb (12.0-16.0) g/dL Hct (36-46) % MCV (80-100) fL MCH (26-34) PG MCHC (30-36) % RDW (11.6-14.8) % Plt Count (150-400) X10^3/uL Neut % (Auto) (50-75) % Lymph % (Auto) (25-40) % [place] % (Auto) (3-14) % Eos % (Auto) (2-4) % Baso % (Auto) (0-2) % Neut # (Auto) (0944-9564) /uL Lymph # (Auto) (5982-3096) /uL [place] # (Auto) (0-900) /uL Eos # (Auto) (0-450) /uL Baso # (Auto) (0-100) /uL D-Dimer (<230) ng/mL Sodium (137-145) mmol/L Potassium (3.4-5.1) mmol/L Chloride (98-107) mmol/L Carbon Dioxide (22-32) mmol/L BUN (7-17) mg/dL Creatinine (0.52-1.04) mg/dL Estimated GFR (>60) mL/min BUN/Creatinine Ratio (6-22) Glucose (70-100) mg/dL Calcium (8.4-10.2) mg/dL Total Bilirubin (0.2-1.3) mg/dL AST (14-36) IU/L ALT (<35) IU/L Alkaline Phosphatase (38-126) U/L Total Creatine Kinase (30-135) U/L CK-MB (CK-2) CK-MB (CK-2) Rel Index Troponin I (0.01-0.034) ng/mL Total Protein (6.3-8.2) g/dL Albumin (3.5-5.0) g/dL Globulin (1.7-4.1) g/dL Albumin/Globulin Ratio (1.0-2.8) Urine Color Urine Appearance Urine pH (4.5-8.0) Ur Specific [place] (1.000-1.035) Urine Protein (Negative) Urine Glucose (UA) (Negative) g/dL Urine Ketones (NEGATIVE) Urine Occult Blood (Negative) Urine Nitrate (Negative) Urine Bilirubin (NEGATIVE) Urine Urobilinogen (0.2) E.U./dL Ur Leukocyte Esterase (NEGATIVE) Urine RBC (0-5/HPF) Urine WBC (0-5/HPF) Ur Squamous Epith Cells (0-5/HPF) Amorphous Sediment Urine Bacteria (None) Urine Mucus (Negative) Ur Culture Indicated? Urine Test (Negative) SARS-CoV-2 (PCR) Negative (Negative) Imaging Data CT scan - head: Radiologist's Impression: MR#: [id number] : 1985 Acct:[id number] Age/Sex: 35 / F Date of Service: 11/24/21 Loc: ED Accession Number: [id number] ?? Procedure: CT head/brain wo con Ordering Provider: Nancy Harvey D.O. PROCEDURE:? CT HEAD/BRAIN WO CON ? INDICATIONS:? GLF ? TECHNIQUE:? Noncontrast 4.5 mm thick angled axial sections acquired from the foramen magnum to the vertex, with coronal and sagittal reformats.? For radiation dose reduction, the following was used:? automated exposure control, adjustment of mA and/or kV according to patient size.? ? COMPARISON:? Outside Film, CT, CT HEAD WITHOUT CONTRAST, 04/13/2021, 18:23. ? FINDINGS:? Image quality:? Excellent.? ? CSF spaces:? Basal cisterns are patent.? No extra-axial fluid collections.? Ventricles are normal in size and shape.? ? Brain:? No midline shift.? No intracranial masses or hemorrhage.? Steve-white matter interface is normal.? ? Skull and face:? Calvarium and visualized facial bones are intact, without suspicious lesions.? ? Sinuses:? Visualized sinuses and mastoids are clear.? ? IMPRESSION:? No acute intracranial finding. ? ? Dictated by: Dakota Tobin M.D. on 11/24/2021 at 16:13 ? ? CTA - brain/neck: Radiologist's Impression: CT Scan Report Signed Patient: Chelsie Unger MR#: [id number] : 1985 Acct:[id number] Age/Sex: 35 / F Date of Service: 11/24/21 Loc: ED Accession Number: [id number] ?? Procedure: CT angio head and neck Ordering Provider: Nancy Harvey D.O. PROCEDURE:? CT ANGIO HEAD AND NECK ? INDICATIONS:? left sided numbness on cancer med ? TECHNIQUE:? After the administration of intravenous contrast, 1 mm thick sections acquired from the aortic arch through the S[place] of Lopez.? Post-contrast 4.5 mm thick sections then re-acquired from the foramen magnum to the vertex.? 3-dimensional vppzcmq-wsyfdqypz-nxumhgrkwy (MIP) and/or volume rendering reformats were acquired of the central intracranial vasculature and neck separately. For radiation dose reduction, the following was used:? automated exposure control, adjustment of mA and/or kV according to patient size.? ? COMPARISON:? Outside Film, CT, CT ABDOMEN PELVIS WITH CONTRAST, 11/14/2021, 12:54.? Outside Film, CT, CT ANGIO CHEST PE, 11/14/2021, 12:54.? [facility], CT, CT HEAD/BRAIN WO CON, 11/24/2021, 15:43. ? FINDINGS:? Image quality:? Patient motion artifact.? ? BRAIN:? CSF spaces:? Ventricles are normal in size and shape.? Basal cisterns are patent.? No extra-axial fluid collections.? ? Brain:? No midline shift.? No intracranial bleeds or masses.? Steve-white matter interface appears intact.? ? Skull and face:? Calvarium and facial bones appear intact, without suspicious lesions.? Orbits appear normal.? ? Sinuses:? Sinuses and mastoids are clear.? ? HEAD CT ANGIOGRAPHY:? Anterior circulation:? Intracranial internal carotid arteries are normal in size and flow.? The flow within the paired anterior cerebral arteries is normal and symmetric.? The flow within the middle cerebral arteries is normal and symmetric.? The anterior communicating artery is seen.? No aneurysms are seen.? ? Posterior circulation:? Visualized portions of the vertebral arteries demonstrate normal caliber, and join to form a normal appearing basilar artery.? Flow within the posterior cerebral arteries is normal and symmetric.? Incidental note is made of origin of the right posterior cerebral artery off the anterior circulation.? No aneurysms are seen. ? ? NECK CT ANGIOGRAPHY:? Carotid system:? The great vessels demonstrate a bovine arch anatomy as they arise from the aortic arch.? The origins of the common carotid arteries appear patent.? The common carotid arteries demonstrate normal caliber and courses.? Unfortunately, there is patient motion artifact at the level of the carotid bifurcation/proximal internal carotid arteries.? Cannot exclude stenotic disease involving the right carotid bifurcation/proximal internal carotid. ? Posterior circulation:? The origins of the vertebral arteries both appear widely patent.? The more superior extracranial portions of both vertebral arteries also demonstrate normal courses and calibers.? They join to form a normal appearing basilar artery.? ? Soft tissues:? There are multiple enlarged anterior right cervical chain lymph nodes.? Cannot exclude metastatic disease.? Alternatively, these may potentially represent reactive lymph nodes.? There relatively spherical in appearance. ? Bones:? No suspicious bony lesions.? Visualized cervical spine appears normally aligned.? IMPRESSION:? ? 1. No evidence of acute stroke, hemorrhage, or mass. ? 2. Negative CTA head for occlusion, stenosis, aneurysm, or focal filling defect. ? 3. Unfortunately, there is patient motion artifact in the level of the right carotid bifurcation/proximal internal carotid artery.? Disease involving the arterial vessel in this location is not excluded. ? 4. Right cervical adenopathy can potentially be reactive.? However, cannot exclude malignant disease in this patient with history of carcinoma. ? Comment:? Duplex carotid ultrasound may be helpful for better evaluation of the right carotid bifurcation/proximal internal carotid artery.? At that time, the right cervical lymph nodes could be evaluated, as well. ? Any quantitative measurements of stenosis were performed using NASCET criteria.? ? ? Dictated by: Raji Hughes M.D. on 11/24/2021 at 18:15 ?? ECG Data Interpretation: Normal sinus rhythm MDM Narrative Medical decision making narrative: Patient presents with sudden onset of left-sided weakness and numbness causing her to fall. She is on medication Exemestane, which does put her at risk for stroke. She has an NIH of 1 with decreased sensation on left side. Initial head CT is negative. CT angio was also negative. She also developed quite a severe headache while in the emergency department. This may be a complicated migraine. She is given migraine cocktail along with Dilaudid. Patient is otherwise stable and blood work is reassuring. Patient has an NIH stroke scale of 1 no large vessel occlusion signs. Not a tPA candidate. Patient is signed out to Dr. Ramirez <Ammon Ramirez MD - Last Filed: 11/30/21 08:46> Differential Diagnosis Differential diagnosis: Likely other (Complicated migraine/TIA) Lab Data Labs: Lab Results 11/24/21 11/24/21 11/24/21 Range/Units 15:11 15:11 15:55 WBC 7.1 (4.5-11.0) X10^3/uL RBC 4.86 (4.0-5.2) X10^6/uL Hgb 13.8 (12.0-16.0) g/dL Hct 40.5 (36-46) % MCV 83.4 (80-100) fL MCH 28.4 (26-34) PG MCHC 34.0 (30-36) % RDW 13.2 (11.6-14.8) % Plt Count 287 (150-400) X10^3/uL Neut % (Auto) 70.7 (50-75) % Lymph % (Auto) 21.6 L (25-40) % [place] % (Auto) 5.8 (3-14) % Eos % (Auto) 1.6 L (2-4) % Baso % (Auto) 0.3 (0-2) % Neut # (Auto) 5000 (1856-7508) /uL Lymph # (Auto) 1500 (3829-1446) /uL [place] # (Auto) 400 (0-900) /uL Eos # (Auto) 100 (0-450) /uL Baso # (Auto) 0 (0-100) /uL D-Dimer (<230) ng/mL Sodium (137-145) mmol/L Potassium (3.4-5.1) mmol/L Chloride (98-107) mmol/L Carbon Dioxide (22-32) mmol/L BUN (7-17) mg/dL Creatinine (0.52-1.04) mg/dL Estimated GFR (>60) mL/min BUN/Creatinine Ratio (6-22) Glucose (70-100) mg/dL Calcium (8.4-10.2) mg/dL Total Bilirubin (0.2-1.3) mg/dL AST (14-36) IU/L ALT (<35) IU/L Alkaline Phosphatase (38-126) U/L Total Creatine Kinase (30-135) U/L CK-MB (CK-2) CK-MB (CK-2) Rel Index Troponin I (0.01-0.034) ng/mL Total Protein (6.3-8.2) g/dL Albumin (3.5-5.0) g/dL Globulin (1.7-4.1) g/dL Albumin/Globulin Ratio (1.0-2.8) Urine Color Yellow Urine Appearance Clear Urine pH 7.0 (4.5-8.0) Ur Specific [place] 1.010 (1.000-1.035) Urine Protein Negative (Negative) Urine Glucose (UA) Negative (Negative) g/dL Urine Ketones Negative (NEGATIVE) Urine Occult Blood Negative (Negative) Urine Nitrate Negative (Negative) Urine Bilirubin Negative (NEGATIVE) Urine Urobilinogen 0.2 (0.2) E.U./dL Ur Leukocyte Esterase 2+ H (NEGATIVE) Urine RBC 0-1/hpf (0-5/HPF) Urine WBC 10-30/hpf H (0-5/HPF) Ur Squamous Epith Cells 0-1 /hpf (0-5/HPF) Amorphous Sediment 1+ Urine Bacteria Few (2-10) H (None) Urine Mucus 1+ H (Negative) Ur Culture Indicated? Specimen cultured Urine Test Negative (Negative) SARS-CoV-2 (PCR) (Negative) 11/24/21 11/24/21 11/24/21 Range/Units 15:55 15:55 15:55 WBC (4.5-11.0) X10^3/uL RBC (4.0-5.2) X10^6/uL Hgb (12.0-16.0) g/dL Hct (36-46) % MCV (80-100) fL MCH (26-34) PG MCHC (30-36) % RDW (11.6-14.8) % Plt Count (150-400) X10^3/uL Neut % (Auto) (50-75) % Lymph % (Auto) (25-40) % [place] % (Auto) (3-14) % Eos % (Auto) (2-4) % Baso % (Auto) (0-2) % Neut # (Auto) (1742-0173) /uL Lymph # (Auto) (0955-6078) /uL [place] # (Auto) (0-900) /uL Eos # (Auto) (0-450) /uL Baso # (Auto) (0-100) /uL D-Dimer 231 H (<230) ng/mL Sodium 141 (137-145) mmol/L Potassium 4.2 (3.4-5.1) mmol/L Chloride 102 (98-107) mmol/L Carbon Dioxide 32 (22-32) mmol/L BUN 12 (7-17) mg/dL Creatinine 0.84 (0.52-1.04) mg/dL Estimated GFR > 60 (>60) mL/min BUN/Creatinine Ratio 14.3 (6-22) Glucose 95 (70-100) mg/dL Calcium 9.8 (8.4-10.2) mg/dL Total Bilirubin 0.4 (0.2-1.3) mg/dL AST 38 H (14-36) IU/L ALT 32 (<35) IU/L Alkaline Phosphatase 144 H (38-126) U/L Total Creatine Kinase 83 (30-135) U/L CK-MB (CK-2) TNP CK-MB (CK-2) Rel Index TNP Troponin I < 0.012 (0.01-0.034) ng/mL Total Protein 7.7 (6.3-8.2) g/dL Albumin 4.6 (3.5-5.0) g/dL Globulin 3.1 (1.7-4.1) g/dL Albumin/Globulin Ratio 1.5 (1.0-2.8) Urine Color Urine Appearance Urine pH (4.5-8.0) Ur Specific [place] (1.000-1.035) Urine Protein (Negative) Urine Glucose (UA) (Negative) g/dL Urine Ketones (NEGATIVE) Urine Occult Blood (Negative) Urine Nitrate (Negative) Urine Bilirubin (NEGATIVE) Urine Urobilinogen (0.2) E.U./dL Ur Leukocyte Esterase (NEGATIVE) Urine RBC (0-5/HPF) Urine WBC (0-5/HPF) Ur Squamous Epith Cells (0-5/HPF) Amorphous Sediment Urine Bacteria (None) Urine Mucus (Negative) Ur Culture Indicated? Urine Test (Negative) SARS-CoV-2 (PCR) (Negative) 11/24/21 Range/Units 23:00 WBC (4.5-11.0) X10^3/uL RBC (4.0-5.2) X10^6/uL Hgb (12.0-16.0) g/dL Hct (36-46) % MCV (80-100) fL MCH (26-34) PG MCHC (30-36) % RDW (11.6-14.8) % Plt Count (150-400) X10^3/uL Neut % (Auto) (50-75) % Lymph % (Auto) (25-40) % [place] % (Auto) (3-14) % Eos % (Auto) (2-4) % Baso % (Auto) (0-2) % Neut # (Auto) (4554-3013) /uL Lymph # (Auto) (1750-9628) /uL [place] # (Auto) (0-900) /uL Eos # (Auto) (0-450) /uL Baso # (Auto) (0-100) /uL D-Dimer (<230) ng/mL Sodium (137-145) mmol/L Potassium (3.4-5.1) mmol/L Chloride (98-107) mmol/L Carbon Dioxide (22-32) mmol/L BUN (7-17) mg/dL Creatinine (0.52-1.04) mg/dL Estimated GFR (>60) mL/min BUN/Creatinine Ratio (6-22) Glucose (70-100) mg/dL Calcium (8.4-10.2) mg/dL Total Bilirubin (0.2-1.3) mg/dL AST (14-36) IU/L ALT (<35) IU/L Alkaline Phosphatase (38-126) U/L Total Creatine Kinase (30-135) U/L CK-MB (CK-2) CK-MB (CK-2) Rel Index Troponin I (0.01-0.034) ng/mL Total Protein (6.3-8.2) g/dL Albumin (3.5-5.0) g/dL Globulin (1.7-4.1) g/dL Albumin/Globulin Ratio (1.0-2.8) Urine Color Urine Appearance Urine pH (4.5-8.0) Ur Specific [place] (1.000-1.035) Urine Protein (Negative) Urine Glucose (UA) (Negative) g/dL Urine Ketones (NEGATIVE) Urine Occult Blood (Negative) Urine Nitrate (Negative) Urine Bilirubin (NEGATIVE) Urine Urobilinogen (0.2) E.U./dL Ur Leukocyte Esterase (NEGATIVE) Urine RBC (0-5/HPF) Urine WBC (0-5/HPF) Ur Squamous Epith Cells (0-5/HPF) Amorphous Sediment Urine Bacteria (None) Urine Mucus (Negative) Ur Culture Indicated? Urine Test (Negative) SARS-CoV-2 (PCR) Negative (Negative) ECG Data Interpretation: Normal sinus rhythm, no ST elevation or depression rate 74 Discharge Plan Departure Patient Disposition: Admitted as Observation Clinical Impression: Syncope, Paresthesia Admit Date/Time: 11/24/21 23:32 Admit Provider: Sveta Mooney
--- NOTE | 2021-11-24 15:38 | DI.RAD.S_ITS ---
PROCEDURE: XR CHEST 1V INDICATIONS: syncope TECHNIQUE: One view of the chest was acquired. COMPARISON: [facility], CR, XR CHEST 1V, 09/08/2021, 6:33. FINDINGS: Surgical changes and devices: None. Lungs and pleura: Lungs are clear. No pleural effusions or pneumothorax. Mediastinum: Mediastinal contours appear normal. Heart size is enlarged Bones and chest wall: No suspicious bony lesions. Overlying soft tissues appear unremarkable. IMPRESSION: Stable cardiomegaly. No acute abnormality. Dictated by: Justin Redman M.D. on 11/24/2021 at 16:23 Approved by: Justin Redman M.D. on 11/24/2021 at 16:24
[2021-11-24 16:00] LABS: Appearance Urine UA CLEAR; Bilirubin Urine UA NEGATIVE (NEGATIVE); Color Urine UA YELLOW; Glucose Urine UA NEGATIVE (Negative); Ketones Urine UA NEGATIVE (NEGATIVE); Leukocyte Esterase Urine UA 2+ (NEGATIVE); Nitrite Urine UA NEGATIVE (Negative); Occult Blood Urine UA NEGATIVE (Negative); Protein Urine UA NEGATIVE (Negative); Urobilinogen Urine UA 0.2 E.U./dL (0.2)
[2021-11-24 16:03] LABS: Add Manual Diff / Slide Review NO; Basophils Absolute Auto 0 /uL (0-100); Basophils Percent Auto 0.3 % (0-2); Eosinophils Absolute Auto 100 /uL (0-450); Eosinophils Percent Auto 1.6 % (2-4); Hematocrit 40.5 % (36-46); Hemoglobin 13.8 g/dL (12.0-16.0); Lymphocytes Absolute Auto 1500 /uL (1100-4500); Lymphocytes Percent Auto 21.6 % (25-40); Mean Corpuscular Hemoglobin 28.4 PG (26-34); Mean Corpuscular Volume 83.4 fL (80-100); Monocytes Absolute Auto 400 /uL (0-900); Monocytes Percent Auto 5.8 % (3-14); Neutrophils Absolute Auto 5000 /uL (1500-7000); Neutrophils Percent Auto 70.7 % (50-75); Platelet Count 287 X10^3/uL (150-400); Red Blood Cell Count 4.86 X10^6/uL (4.0-5.2); Red Cell Distribution Width 13.2 % (11.6-14.8); White Blood Cell Count 7.1 X10^3/uL (4.5-11.0)
[2021-11-24 16:12] LABS: Creatine Kinase 83 U/L (30-135)
[2021-11-24 16:13] LABS: D Dimer 231 ng/mL (<230)
[2021-11-24 16:18] LABS: Alanine Aminotransferase 32 IU/L (<35); Albumin 4.6 g/dL (3.5-5.0); Albumin Globulin Ratio 1.5 (1.0-2.8); Alkaline Phosphatase 144 U/L (38-126); Aspartate Aminotransferase 38 IU/L (14-36); BUN Creatinine Ratio 14.3 (6-22); Bilirubin Total 0.4 mg/dL (0.2-1.3); Blood Urea Nitrogen 12 mg/dL (7-17); Calcium 9.8 mg/dL (8.4-10.2); Carbon Dioxide 32 mmol/L (22-32); Chloride 102 mmol/L (98-107); Estimated Glomerular Filt Rate > 60 mL/min (>60); Globulin 3.1 g/dL (1.7-4.1); Glucose 95 mg/dL (70-100); HEMOLYSIS < 15 (0-50); Potassium 4.2 mmol/L (3.4-5.1); Sodium 141 mmol/L (137-145); Total Protein 7.7 g/dL (6.3-8.2)
[2021-11-24 16:23] LABS: Amorphous Sediment Urine 1+; Bacteria Urine Few (2-10); Culture Indicated Urine Specimen Cultured; Mucus Urine 1+ (Negative); RBC Urine 0-1/HPF (0-5/HPF); Squamous Epithelial Cell Urine 0-1 /HPF (0-5/HPF); WBC Urine 10-30/HPF (0-5/HPF)
[2021-11-24 16:25] LABS: Troponin I < 0.012 ng/mL (0.01-0.034)
--- NOTE | 2021-11-24 17:37 | DI.CT.S_ITS ---
PROCEDURE: CT ANGIO HEAD AND NECK INDICATIONS: left sided numbness on cancer med TECHNIQUE: After the administration of intravenous contrast, 1 mm thick sections acquired from the aortic arch through the [place] of [place]. Post-contrast 4.5 mm thick sections then re-acquired from the foramen magnum to the vertex. 3-dimensional yqxjijv-qpfuetgyu-bjqrzkoxbv (MIP) and/or volume rendering reformats were acquired of the central intracranial vasculature and neck separately. For radiation dose reduction, the following was used: automated exposure control, adjustment of mA and/or kV according to patient size. COMPARISON: Outside Film, CT, CT ABDOMEN PELVIS WITH CONTRAST, 11/14/2021, 12:54. Outside Film, CT, CT ANGIO CHEST PE, 11/14/2021, 12:54. [facility], CT, CT HEAD/BRAIN WO CON, 11/24/2021, 15:43. FINDINGS: Image quality: Patient motion artifact. BRAIN: CSF spaces: Ventricles are normal in size and shape. Basal cisterns are patent. No extra-axial fluid collections. Brain: No midline shift. No intracranial bleeds or masses. Steve-white matter interface appears intact. Skull and face: Calvarium and facial bones appear intact, without suspicious lesions. Orbits appear normal. Sinuses: Sinuses and mastoids are clear. HEAD CT ANGIOGRAPHY: Anterior circulation: Intracranial internal carotid arteries are normal in size and flow. The flow within the paired anterior cerebral arteries is normal and symmetric. The flow within the middle cerebral arteries is normal and symmetric. The anterior communicating artery is seen. No aneurysms are seen. Posterior circulation: Visualized portions of the vertebral arteries demonstrate normal caliber, and join to form a normal appearing basilar artery. Flow within the posterior cerebral arteries is normal and symmetric. Incidental note is made of origin of the right posterior cerebral artery off the anterior circulation. No aneurysms are seen. NECK CT ANGIOGRAPHY: Carotid system: The great vessels demonstrate a bovine arch anatomy as they arise from the aortic arch. The origins of the common carotid arteries appear patent. The common carotid arteries demonstrate normal caliber and courses. Unfortunately, there is patient motion artifact at the level of the carotid bifurcation/proximal internal carotid arteries. Cannot exclude stenotic disease involving the right carotid bifurcation/proximal internal carotid. Posterior circulation: The origins of the vertebral arteries both appear widely patent. The more superior extracranial portions of both vertebral arteries also demonstrate normal courses and calibers. They join to form a normal appearing basilar artery. Soft tissues: There are multiple enlarged anterior right cervical chain lymph nodes. Cannot exclude metastatic disease. Alternatively, these may potentially represent reactive lymph nodes. There relatively spherical in appearance. Bones: No suspicious bony lesions. Visualized cervical spine appears normally aligned. IMPRESSION: 1. No evidence of acute stroke, hemorrhage, or mass. 2. Negative CTA head for occlusion, stenosis, aneurysm, or focal filling defect. 3. Unfortunately, there is patient motion artifact in the level of the right carotid bifurcation/proximal internal carotid artery. Disease involving the arterial vessel in this location is not excluded. 4. Right cervical adenopathy can potentially be reactive. However, cannot exclude malignant disease in this patient with history of carcinoma. Comment: Duplex carotid ultrasound may be helpful for better evaluation of the right carotid bifurcation/proximal internal carotid artery. At that time, the right cervical lymph nodes could be evaluated, as well. Any quantitative measurements of stenosis were performed using NASCET criteria. Dictated by: Raji Hughes M.D. on 11/24/2021 at 18:15 Approved by: Raji Hughes M.D. on 11/24/2021 at 18:28
[2021-11-24] MEDS: PROCHLORPERAZINE 10 MG/2 ML VIAL IV (18:01)
[2021-11-24] MEDS: KETOROLAC 30 MG/ML VIAL 15 MG IV (18:06)
[2021-11-24 18:07] LABS: Pregnancy Test Urine Negative (Negative)
[2021-11-24] MEDS: diphenhydrAMINE 50 MG/ML VIAL 25 MG IV (18:07)
[2021-11-24] MEDS: SODIUM CHLORIDE 0.9% 1,000 ML 1000 ML IV (18:08)
[2021-11-24] MEDS: HYDROMORPHONE 1 MG INJ IV ×2 (19:16→23:07)
[2021-11-24 23:20] LABS: COVID19 -Nasal RAPID Negative (Negative)
[2021-11-25] VITALS (21 sets, daily range): BP systolic 98–147; BP diastolic 54–89; PULSE 63–92; RESP 16–19; TEMP 36.3–36.6; O2SAT 94–98; BMI 53.5
[2021-11-25] MEDS: LORazepam 2 MG/ML INJ 1 MG IV (00:40)
[2021-11-25] MEDS: KETOROLAC 30 MG/ML VIAL 15 MG IV (04:28)
[2021-11-25 06:46] LABS: Cholesterol 193 mg/dL (140-199); HDL Cholesterol 26 mg/dL (40-60); LDL Cholesterol Calculated 149 mg/dL (<100); Magnesium 2.1 mg/dL (1.6-2.3); Triglycerides 92 mg/dL (35-150)
[2021-11-25 06:54] LABS: NT-proBNP (BNP-Adult 18+) 80 pg/mL (<125)
--- NOTE | 2021-11-25 07:04 | PC.NURSE ---
Pt reports that after PRN Toradol head ache remains unchanged, hositalist notified.
[2021-11-25] MEDS: ASPIRIN EC 81 MG TABLET PO (09:51)
[2021-11-25] MEDS: ENOXAPARIN 40 MG/0.4 ML SYRINGE SUBCUT (09:51)
[2021-11-25] MEDS: CLOPIDOGREL 75 MG TABLET PO (09:51)
--- NOTE | 2021-11-25 10:25 | PT.IIE ---
Medical History (Last Reviewed 09/08/21 @ 08:03 by Nancy Marina DO) Breast cancer, right breast Physical Therapy Inpatient Evaluation/Re-Eval M1 PT/OT-IP Prior Functional Status Start: 11/25/21 11:29 Freq: NEEDED Status: Active Protocol: Document 11/25/21 10:25 AB (Rec: 11/25/21 11:41 AB [email or web address]) Medical Review Prior Functional Status Medical History Reviewed Yes Communication able to make needs known Mobility and Gait pt stated that she is modified independent with all mobilities and ambulation without AD; stated that she has been fighting a LLE infection and has on/off numbness on LLE and has been going to PT for LE problem Social History Household Members other Living Arrangements Mobile home Number of Floors (Floors) One Floor Number of Stairs To Enter/Railing? lives in a trailer with 4 steps B rails to enter Home Environment Standard Height Toilet,Tub/ Shower Home Equipment Front Wheel Walker,Tub Transfer Bench,Grab Bars In Shower Additional Social History Comment pt has a roommate that can assist her M2 PT-IP Current Condition Start: 11/25/21 11:29 Freq: NEEDED Status: Active Protocol: Document 11/25/21 10:25 AB (Rec: 11/25/21 11:41 AB [email or web address]) Physical Therapy Current Condition Current Condition Evaluation Date 11/25/21 Treatment Diagnosis L sided numbness; difficulty in walking Onset Date 11/24/21 M3 PT-IP Subjective Start: 11/25/21 11:29 Freq: NEEDED Status: Active Protocol: Document 11/25/21 10:25 AB (Rec: 11/25/21 11:41 AB [email or web address]) Subjective Physical Therapy Visit Type Type Initial Evaluation Visit Start Time 10:25 Visit Stop Time 10:55 Total Visit Minutes 30 Number of COMPUTER APPLICATIONS ENGINEER Visits 0 Physical Therapy Visit Comments Patient Comments agreeable to do PT Therapy Pain Assessment Pain When Pain Assessed At Rest Pain Present Pain Present Pain Reported Location Headache Intensity 8 Scale Used Numeric (0 - 10) Pain Management Techniques Modification of Treatment M4 PT-IP Mobility and Gait Start: 11/25/21 11:29 Freq: NEEDED Status: Active Protocol: Document 11/25/21 10:25 AB (Rec: 11/25/21 11:41 AB [email or web address]) PT-Bed Mobility Assessment Supine to Sit Supine to Sit Standby Assistance Sit to Supine Sit to Supine Standby Assistance PT-Transfer Assessment Sit to and From Stand Sit to and from Stand Standby Assistance Equipment Transfer Assistive Device Gait Belt,Front Wheeled Walker Orthotic/Prosthetic Devices or Brace: No Comments Mobility Comments BP in supine: 140/89, PA 85 O2 sat at RA 97%. completed supine to sit SBA. able to sit on EOB SA. completed sit to stand SBA and ambulated in room using FWW CGA ~ 30 ft. presents with antalgic gait. assessed ambulation without AD and completed ~ 30 ft min A and cues and has unsteady antalgic gait. Pt requested to go back to bed and completed sit to supine SBA. positioned in bed. call light and table placed within reach. Gait Assessment Gait Gait Assistance Required: Contact Guard Assist,Minimum Assistance Distance (Feet) 30 Able to Maintain Weight Bearing Status Yes During Gait Assistive Devices Assistive Device None,Gait Belt,Front Wheeled Walker Orthotic/Prosthetic Devices or Brace: No Gait Deviations General Gait Pattern Antalgic,Decreased Stride Length,Decreased Feet Clearance Factors Limiting Gait Function Factors Limiting Gait Function Decreased Activity Tolerance, Decreased Strength,Pain,Poor Balance,Poor Safety Awareness Comments Gait Comments pls refer to mobility section for details PT-Balance Assessment Sitting Balance and Reactions Static Sitting Balance Ability Normal Dynamic Sitting Balance Ability Good Standing Balance and Reactions Static Standing Balance Ability Fair Dynamic Standing Balance Ability Poor Device Used without AD M5 PT-IP Objective Assessments Start: 11/25/21 11:29 Freq: NEEDED Status: Active Protocol: Document 11/25/21 10:25 AB (Rec: 11/25/21 11:41 AB [id number]) Orientation Orientation/Cognition Level of Alertness Alert Orientation Name Language Function Ability No Deficits Noted Safety Awareness Decreased Safety Awareness Memory Description No Deficits Noted Gross Range of Motion Lower Extremity ROM Assessment Within Functional Limits Strength Lower Extremity Strength Assessment Left Impaired Hip 3/5 Knee 3+/5 Coordination Assessment Gross Coordination Gross Coordination WNL Sensation Assessment Sensation Gross Sensation Left LE Impaired Light Touch Impaired Sensation Description Numbness Comments Sensation Comments unable to feel light touch on LLE and only felt 3/6 attempts Muscle Tone Muscle Tone WNL Yes M6 PT-IP Treatment Start: 11/25/21 11:29 Freq: NEEDED Status: Active Protocol: Document 11/25/21 10:25 AB (Rec: 11/25/21 11:41 AB [id number]) Physical Therapy Treatment Education Education Provided Safety M7 PT-IP Assessment and Plan Start: 11/25/21 11:29 Freq: NEEDED Status: Active Protocol: Document 11/25/21 10:25 AB (Rec: 11/25/21 11:41 [email or web address]) PT Summary Assessment and Plan Potential Rehabilitation Potential Fair Status of Condition at Evaluation Evolving Summary Impairments Pain,ROM,Strength,Balance, Coordination,Sensation,Tone, Cognition,Bed Mobility, Transfers,Gait,Activity Tolerance Assessment Summary pt with LLE weakness and ambulated using fWW CGA but require min A without AD and presents with unsteady antalgic gait. Recommending use of FWW at this time for safety. pt agreed. will continue to assess progress. pt stated that her roommate is going to be able to assist her at home. pt also will need outpt PT. Goals Bed Mobility Goal Independent Transfer Goal Independent,Front Wheeled Walker Gait Goal Independent,Front Wheel Walker Gait Distance 300 Other Goals improve ambulation without AD ~ 200 ft SBA up/down 4 steps B rails mod I Days to Meet Goals 5 Frequency of Treatment Frequency Of Treatment Once a Day Treatment Plan Physical Therapy Treatment Plan Bed Mobility Training,Transfer Training,Gait Training, Therapeutic Exercise,Balance Retraining,Discharge Planning, Hot or Cold Pack,Neuromuscular Re-ed,Coordination Retraining ,Manual Therapy Recommendations To Nursing Amount of Assist Needed 1 Person Assist Discharge Recommendations PT Discharge Recommendations Home with Assistance, Outpatient PT Transportation Needs at Discharge Private Vehicle
--- NOTE | 2021-11-25 10:56 | DI.MRI.S_ITS ---
PROCEDURE: MR HEAD/BRAIN WO CON INDICATIONS: malignancy hx, acute onset unilateral weakness TECHNIQUE: Noncontrast axial T1 spin echo, axial T2 fast spin echo, sagittal and axial FLAIR, coronal T2 fast spin echo, axial gradient echo, axial diffusion and ADC through the brain. COMPARISON: None. FINDINGS: Image quality: Excellent. CSF Spaces: Basal cisterns are patent. No extra-axial fluid collections. Ventricles are normal in size and shape. Brain: No intracranial masses or hemorrhage. Steve/white matter interface is normal. Brainstem appears normal. Diffusion-weighted images demonstrate no acute ischemic insult. No chronic ischemic insults. Normal intravascular flow voids are present. Skull and face: Calvarium has normal marrow signal. Orbits appear normal. Sinuses: Sinuses and mastoids are clear. IMPRESSION: 1. No acute process. 2. No evidence of malignancy on noncontrast imaging. 3. No recent infarct. Dictated by: Alex Pickett M.D. on 11/25/2021 at 11:33 Approved by: Alex Pickett M.D. on 11/25/2021 at 11:35
--- NOTE | 2021-11-25 10:57 | DI.US.S_ITS ---
PROCEDURE: US CAROTID DOPPLER BI INDICATIONS: acute onset unilateral weakness, cervical adenopathy TECHNIQUE: Color and pulse Doppler interrogation was performed of both carotid systems, with image documentation and velocity measurements. COMPARISON: None. FINDINGS: Stenosis calculations are based on SRU (Society of Radiologists in Ultrasound) criteria. Right side: Brachial blood pressure: 124/66 mm Hg. Common carotid artery peak systolic velocity: 71 cm/sec. Internal carotid artery peak systolic velocity: 63 cm/sec. Internal carotid artery end diastolic velocity: 25 cm/sec. External carotid artery peak systolic velocity: 79 cm/sec. ICA/CCA peak systolic ratio: 0.9. Steve scale imaging description: Unremarkable Percent internal carotid artery stenosis: None Vertebral artery: Flow direction is antegrade. Left side: Brachial blood pressure: 119/60 mm Hg. Common carotid artery peak systolic velocity: 84 cm/sec. Internal carotid artery peak systolic velocity: 69 cm/sec. Internal carotid artery end diastolic velocity: 30 cm/sec. External carotid artery peak systolic velocity: 99 cm/sec. ICA/CCA peak systolic ratio: 0.8 . Steve scale imaging description: Unremarkable Percent internal carotid artery stenosis: None . Vertebral artery: Flow direction is antegrade. Incidental note is made of submandibular lymph nodes, largest measures 1.1 x 1.5 x 1.8 cm IMPRESSION: Unremarkable duplex carotid ultrasound without evidence of stenosis Incidental submandibular adenopathy with preserved fatty hilum Approved by: Matheus Mccollum M.D. on 11/25/2021 at 11:16
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
[2021-11-25] MEDS: HYDROCODONE/ACET 5/325 TABLET 2 TAB PO ×2 (12:34→18:00)
[2021-11-25] MEDS: ONDANSETRON 4 MG/2 ML INJ IV (14:12)
[2021-11-25] MEDS: MORPHINE 2 MG/ML INJ IV (14:12)
[2021-11-25 14:38] LABS: Magnesium 2.1 mg/dL (1.6-2.3)
--- NOTE | 2021-11-25 15:23 | OT.IP.EVAL ---
Past Medical History (Last Reviewed 09/08/21 @ 08:03 by Nancy Marina DO) Breast cancer, right breast Occupational Therapy Inpatient Evaluation/Re-Eval M1 PT/OT-IP Prior Functional Status Start: 11/25/21 11:29 Freq: NEEDED Status: Active Protocol: Document 11/25/21 15:25 [facility] (Rec: 11/25/21 15:43 [facility] [id number]) Medical Review Prior Functional Status Medical History Reviewed Yes Communication able to make needs known Mobility and Gait pt stated that she is modified independent with all mobilities and ambulation without AD; stated that she has been fighting a LLE infection and has on/off numbness on LLE and has been going to PT for LE problem Activities of Daily Living and IADL's Pt states prior completely independent with all needs. Social History Household Members other Living Arrangements Mobile home Number of Floors (Floors) One Floor Number of Stairs To Enter/Railing? lives in a trailer with 4 steps B rails to enter Home Environment Standard Height Toilet,Tub/ Shower Home Equipment Front Wheel Walker,Tub Transfer Bench,Grab Bars In Shower Additional Social History Comment pt has a roommate that can assist her M2 OT-IP Current Condition Start: 11/25/21 15:24 Freq: Status: Active Protocol: Document 11/25/21 15:25 [facility] (Rec: 11/25/21 15:43 [facility] [id number]) Occupational Therapy Current Condition Current Condition Evaluation Date 11/25/21 Treatment Diagnosis Left sided numbness/migraine, decreased mobility Diagnosis Onset Date 11/24/21 M3 OT- IP Subjective and Pain Start: 11/25/21 15:24 Freq: Status: Active Protocol: Document 11/25/21 15:25 [facility] (Rec: 11/25/21 15:43 [facility] [id number]) OT- Subjective Occupational Therapy Visit Type Type Initial Evaluation Visit Start Time 14:55 Visit Stop Time 15:23 Total Visit Minutes 38 Occupational Therapy Visit Comments Patient Comments Pt agreed to work with OT and wanting to go use the bathroom . Patient/Caregiver Goals TO go home when medically stable. OT Pain Assessment Pain When Pain Assessed At Rest Pain Present Pain Present Pain Reported Location Headache Pain Behaviors Facial Grimacing,Holding Area M4 OT- IP ADL's Start: 11/25/21 15:24 Freq: Status: Active Protocol: Document 11/25/21 15:25 [facility] (Rec: 11/25/21 15:43 [facility] [id number]) OT [id number] Comments OT Self-Feeding Comments Not meal time. OT ADL-Grooming Comments OT Grooming Comments Not performed. OT ADL-Oral Care Comments Oral Care Comments NOt performed. OT ADL-Dressing Comments OT Dressing Comments Not performed. OT ADL-Toileting General Evaluation Toileting Ability Standby Assistance Comments OT Toileting Comments SBA while pt standing to pull up her brief while at the toilet. OT ADL-Bathing Comments OT Bathing Comments NOt performed, pt states has a tub bench at home to use. M5 OT- IP IADL's Start: 11/25/21 15:24 Freq: Status: Active Protocol: Document 11/25/21 15:25 [facility] (Rec: 11/25/21 15:43 [facility] [id number]) OT-Instrumental Activities of Daily Living Home Safety Awareness Awareness of Need for Assistance at Home Good Awareness Home Safety Comments Pt has a migraine and to assess more tomorrow for formal cognitive assessment. On OT eval cognition appears intact. M6 OT- IP Functional Cognition Start: 11/25/21 15:24 Freq: Status: Active Protocol: Document 11/25/21 15:25 [facility] (Rec: 11/25/21 15:43 [facility] [id number]) Cognitive Factors Limiting Selfcare Function Cognitive Ability Level of Alertness Alert Patient Orientation Name,Age,Birthday,Month,Date, Year,Day of Week,Place, Situation Attention Span Ability Capable of Focused Attention, Capable of Sustained Attention Ability to Follow Commands Able to Follow Multi-Step Commands Cognitive Comments Cognitive Assessment Comments Pt able to follow commands well, to do [place] Making Part B tomorrow as pt having a migraine and wanting to have the room dim. OT- Vision and Hearing OT- Hearing Assessment OT- Hearing Assessment WFL OT- Vision Assessment Visual Acuity Glasses All The Time M7 OT- IP Mobility and Balance Start: 11/25/21 15:24 Freq: Status: Active Protocol: Document 11/25/21 15:25 [facility] (Rec: 11/25/21 15:43 [facility] [id number]) OT- Bed Mobility Assessment Supine to Sit Supine to Sit Assist Standby Assistance Sit to Supine Sit to Supine Assist Standby Assistance Scooting Scooting to Edge of Bed Standby Assistance OT-Transfer Assessment Sit to and From Stand Sit to and from Stand Standby Assistance Transfers Transfer Ability Contact Guard Assistance Technique Transfer Destination Bed,Toilet Transfer Technique Stand Step Pivot Devices Transfer Assistive Devices Gait Belt,Front Wheeled Walker Comments Mobility Comments CGA while pt getting down from the high gurney in the ER. CGA to ARABELLA for balance while walking to the hallway restroom and back without a device. Pt did not have her shoes on as she normally wears shoes at home. OT- Balance Assessment Sitting Balance and Reactions Static Sitting Balance Ability Normal Dynamic Sitting Balance Ability Good Standing Balance and Reactions Static Standing Balance Ability Fair Dynamic Standing Balance Ability Poor Comments Other Balance Tests/Deviations/Treatment Pt needing ARABELLA for balance : when walking without a device. 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 OT- Coordination Assessment Comments Coordination Comments Intact fingers to thumb bilateral hands. OT-Muscle Tone Assessment Muscle Tone WNL Yes OT Sensation Assessment Comments Summary Comments Decreased for area of elbow and slightly distal and proximal to her right elbow. M9 OT- IP Assessment and Plan Start: 11/25/21 15:24 Freq: Status: Active Protocol: Document 11/25/21 15:25 [facility] (Rec: 11/25/21 15:43 [facility] [id number]) OT Summary Assessment and Plan Potential Rehabilitation Potential Good Analytic Complexity at Evaluation Moderate Summary OT Impairments Balance,Sensation,Functional Mobility,Dressing,Toileting, Bathing,Toilet Transfers, Shower Transfers,Activity Tolerance Progress Towards Goals Slow Progress due to Medical Issues,Slow Progress due to Activity Tolerance Assessment Summary Pt MOD complexity and here due to left sided numbness and weakness and now needing one person assist for ADL and mobility needs. Pt if going home will benefit from assist at all times, and use of her FWW. Pt having severe migraine therefore to do [place] making Part B tomorrow as requesting to keep the room dim. Goals Grooming Goal Independent Dressing Goal Independent Toileting Goal Independent Bathing Goal Independent Toilet Transfer Goal Independent Shower Transfer Goal Independent Days to Meet Goals 5 Frequency of Treatment Frequency Of Treatment Once a Day Treatment Plan OT Treatment Plan ADL Training,Functional Mobility,Patient/Family Education,Discharge Planning Other Treatment Recommendations and Next [place] Making Part B, shower Treatment Focus Discharge Recommendations OT Discharge Recommendations Home with 24/ assist Outpatient PT Transportation Needs at Discharge Private Vehicle
[2021-11-25] MEDS: GABAPENTIN 300 MG CAPSULE 900 MG PO ×2 (15:56→20:45)
[2021-11-25] MEDS: IBUPROFEN 600 MG TABLET PO (17:22)
--- NOTE | 2021-11-25 18:46 | PC.NURSE ---
Pt admitted from ED around 1430. Pt is AxOx4, independent and cooperative. Pt c/o headache 01/04 so pt was given scheduled Ibuprofen first but did not help. thus, pt was given PRN [place] 2 tabs around 1800. It wasn't effective. Pt stated she still has headache 01/04. Pt is on Chemo for Breast CA so pt has chemo precaution. Pt's Left arm, and leg weaker than the R side. 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 No other changes.
[2021-11-25] MEDS: HYDROCODONE/ACET 10/325 TABLET 1 TAB PO (20:45)
[2021-11-25] MEDS: EXEMESTANE 25 MG TABLET PO (20:45)
[2021-11-25] MEDS: ATORVASTATIN 20 MG TABLET 40 MG PO (20:45)
[2021-11-25] MEDS: TRAMADOL 50 MG TABLET PO (22:35)
[2021-11-26] VITALS: O2SAT 99
[2021-11-26] MEDS: HYDROCODONE/ACET 5/325 TABLET 2 TAB PO (03:13)
[2021-11-26 04:00] VITALS: O2SAT 99
[2021-11-26 05:44] VITALS: BP 91/66; PULSE 66; RESP 19; TEMP 36.3; O2SAT 100
[2021-11-26 08:10] VITALS: BP 126/57; PULSE 74; RESP 18; TEMP 35.8; O2SAT 96
--- NOTE | 2021-11-26 09:30 | OT.IP.TRT ---
Occupational Therapy Treatment Note M2 OT-IP Current Condition Start: 11/25/21 15:24 Freq: Status: Active Protocol: Document 11/25/21 15:25 [facility] (Rec: 11/25/21 15:43 [facility] [id number]) Occupational Therapy Current Condition Current Condition Evaluation Date 11/25/21 Treatment Diagnosis Left sided numbness/migraine, decreased mobility Diagnosis Onset Date 11/24/21 M3 OT- IP Subjective and Pain Start: 11/25/21 15:24 Freq: Status: Active Protocol: Document 11/26/21 09:39 [facility] (Rec: 11/26/21 09:50 [facility] [id number]) OT- Subjective Occupational Therapy Visit Type Type Treatment Note Visit Start Time 09:20 Visit Stop Time 09:39 Total Visit Minutes 19 Occupational Therapy Visit Comments Patient Comments Pt complaining of feeling nauseous but agreed to do [place] Making Part B. Patient/Caregiver Goals To go home. M5 OT- IP IADL's Start: 11/25/21 15:24 Freq: Status: Active Protocol: Document 11/25/21 15:25 [facility] (Rec: 11/25/21 15:43 [facility] [id number]) OT-Instrumental Activities of Daily Living Home Safety Awareness Awareness of Need for Assistance at Home Good Awareness Home Safety Comments Pt has a migraine and to assess more tomorrow of formal cognitive assessment. M6 OT- IP Functional Cognition Start: 11/25/21 15:24 Freq: Status: Active Protocol: Document 11/26/21 09:39 [facility] (Rec: 11/26/21 09:50 [facility] [id number]) Cognitive Factors Limiting Selfcare Function Cognitive Ability Level of Alertness Alert Patient Orientation Name,Age,Birthday,Month,Date, Year,Day of Week,Place, Situation Attention Span Ability Capable of Focused Attention, Capable of Sustained Attention Ability to Follow Commands Able to Follow Multi-Step Commands Cognitive Comments Cognitive Assessment Comments Pt scored 88 seconds on [place] Making Part B which implies mild impairments for visual attention, speed of processing , executive functioning, task switching, and mental flexibility. At this time suggested pt get a friend to help drive her home as per pt states drove here to the hospital on her own. In addition pt is feeling nauseous . Pt's score for her age scores below the 20% percentile. Per nurse, pt has been up to the bathroom on her own and suggested to therapist to reinforce use on the FWW when up. M8 OT- IP Objective Assessments Start: 11/25/21 15:24 Freq: Status: Active Protocol: Document 11/26/21 09:39 [facility] (Rec: 11/26/21 09:50 [facility] [id number]) OT Sensation Assessment Comments Summary Comments Intact for light touch today throughout left arm. M9 OT- IP Assessment and Plan Start: 11/25/21 15:24 Freq: Status: Active Protocol: Document 11/26/21 09:39 [facility] (Rec: 11/26/21 09:50 [facility] [id number]) OT Summary Assessment and Plan Potential Rehabilitation Potential Good Analytic Complexity at Evaluation Moderate Summary OT Impairments Balance,Functional Mobility, Dressing,Toileting,Bathing, Toilet Transfers,Shower Transfers Progress Towards Goals Progressing Toward Goals Assessment Summary Pt now intact for sensation of left UE. Pt feeling a little nauseous and wanting to just stay in bed at this time, but agreed to do cognitive assessment of [place] MAking Part B. Pt scored 88 seconds on [place] Making Part B which implies mild impairments for visual attention, speed of processing, executive functioning, task switching, and mental flexibility. Pt feels that she does not do well with numbers and letters. At this time suggested pt get a friend to help drive her home as per pt states drove here to the hospital on her own. In addition pt is feeling nauseous and would be best to just have someone drive her home. Pt wanting to go home to shower instead of here at this time. Goals Grooming Goal Independent Dressing Goal Independent Toileting Goal Independent Bathing Goal Independent Toilet Transfer Goal Independent Shower Transfer Goal Independent Days to Meet Goals 1 Frequency of Treatment Frequency Of Treatment Once a Day Treatment Plan OT Treatment Plan ADL Training,Functional Mobility,Patient/Family Education,Discharge Planning Discharge Recommendations OT Discharge Recommendations Home with Assistance, Outpatient PT Transportation Needs at Discharge Private Vehicle
[2021-11-26] MEDS: GABAPENTIN 300 MG CAPSULE 900 MG PO (09:36)
[2021-11-26] MEDS: ONDANSETRON 4 MG ODT PO (09:36)
[2021-11-26] MEDS: ASPIRIN EC 81 MG TABLET PO (09:36)
[2021-11-26] MEDS: ENOXAPARIN 40 MG/0.4 ML SYRINGE SUBCUT (09:36)
--- NOTE | 2021-11-26 11:01 | CM.DANOTE ---
DCP: Case received, EMR reviewed and met with patient. Introduced self and role. Was able to obtain some information from patient regarding her baseline activity and current living situation. DCP assessment completed with information currently available. Patient is a 35 year old female who admitted on 11/24 to the care of the hospitalist team. PCP: Dr. Montes. Payer: confirmed: Medicaid. Patient came to the hospital via private vehicle secondary to having a syncopal episode. Patient had been walking across the parking lot leaving work, and had numbness to left side, and woke up on the ground. Patient was diagnosed with left sided weakness. MRI to be done. 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 Patient has history of stage 2 invasive ductal carcinoma, in remission. Met with patient in her room. She is alert and oriented, and resides in [facility] with room mates. She is independent at her baseline. She did drive herself here to the hospital. She is employed at [employer]. P: DCP to continue to follow. Plan is home when stable. Marie Paniagua RN/Coding Machine Operator Discharge Planning/Care Management CM Discharge Assessment Start: 11/26/21 11:00 Freq: Status: Active Protocol: Document 11/26/21 11:00 (Rec: 11/26/21 11:01 [id number]) Discharge Planning Assessment Assigned Medical Apparatus Model Maker Marie Paniagua RN/Coding Machine Operator Advance Directives? No History Provided By Patient,Medical Record Prior Living Arrangements Mobile home Household Members other Type of transporation used prior to Drives own vehicle admit Independent with ADL's Yes Is patient alert and oriented? Yes Caregiver for Another No Barriers to Discharge No Discharge Plan Home Transportation Arrangement Friend or family Referrals Initiated None needed Whiteboard Updated in Patient Room with Yes name and ext. # of Medical Apparatus Model Maker Review Status In Process Next Review Type Continued Stay Review
--- NOTE | 2021-11-26 11:27 | PT.IPTN ---
Physical Therapy Treatment Note M2 PT-IP Current Condition Start: 11/25/21 11:29 Freq: NEEDED Status: Active Protocol: Document 11/25/21 10:25 AB (Rec: 11/25/21 11:41 AB [id number]) Physical Therapy Current Condition Current Condition Evaluation Date 11/25/21 Treatment Diagnosis L sided numbness; difficulty in walking Onset Date 11/24/21 M3 PT-IP Subjective Start: 11/25/21 11:29 Freq: NEEDED Status: Active Protocol: Document 11/26/21 11:16 KS (Rec: 11/26/21 12:19 KS [id number]) Subjective Physical Therapy Visit Type Type Treatment Note Visit Start Time 11:16 Visit Stop Time 11:27 Total Visit Minutes 11 Number of HR GENERALIST Visits 1 Physical Therapy Visit Comments Patient Comments agreeable to do PT M4 PT-IP Mobility and Gait Start: 11/25/21 11:29 Freq: NEEDED Status: Active Protocol: Document 11/26/21 11:16 KS (Rec: 11/26/21 12:19 KS [id number]) PT-Bed Mobility Assessment Supine to Sit Supine to Sit Standby Assistance Sit to Supine Sit to Supine Standby Assistance Scooting Scooting to Edge of Bed Standby Assistance PT-Transfer Assessment Sit to and From Stand Sit to and from Stand Standby Assistance Equipment Transfer Assistive Device None,Gait Belt,Front Wheeled Walker Orthotic/Prosthetic Devices or Brace: No Transfers Transfer Destination Bed Transfer Technique Pt ambulated Transfer Ability Level of Assist Standby Assistance Comments Mobility Comments Pt in bed upon arrival and reporting nausea but agreeable to ambulate. SBA for sup<>sit and sit<>Stand w/ FWW. Pt ambulated ~40 ft w/ FWW SBA no LOB and then additional 40 ft SBA w/o AD. Pt stated she feels just as stable w/o FWW, but agrees to use it for longer distances while at home . Pt feeling much better than yesterday but still slightly weaker than baseline. Refused stair training, stating she has bilateral hand rails and has not had issues ascending or descending stairs prior. Pt returned to bed SBA and left in bed w/ all needs in reach. Gait Assessment Gait Gait Assistance Required: Standby Assistance Distance (Feet) 80 Able to Maintain Weight Bearing Status Yes During Gait Assistive Devices Assistive Device None,Gait Belt,Front Wheeled Walker Orthotic/Prosthetic Devices or Brace: No Gait Deviations General Gait Pattern Antalgic,Decreased Stride Length,Decreased Feet Clearance Factors Limiting Gait Function Factors Limiting Gait Function Decreased Activity Tolerance, Decreased Sensation,Decreased Strength Comments Gait Comments pls refer to mobility section for details Stair Climbing Assessment Comments Stair Climbing Comments Pt refused. Feels confident to complete at home. PT-Balance Assessment Sitting Balance and Reactions Static Sitting Balance Ability Normal Dynamic Sitting Balance Ability Good Standing Balance and Reactions Static Standing Balance Ability Good Dynamic Standing Balance Ability Fair Device Used without AD M5 PT-IP Objective Assessments Start: 11/25/21 11:29 Freq: NEEDED Status: Active Protocol: Document 11/25/21 10:25 AB (Rec: 11/25/21 11:41 AB [id number]) Orientation Orientation/Cognition Level of Alertness Alert Orientation Name Language Function Ability No Deficits Noted Safety Awareness Decreased Safety Awareness Memory Description No Deficits Noted Gross Range of Motion Lower Extremity ROM Assessment Within Functional Limits Strength Lower Extremity Strength Assessment Left Impaired Hip 3/5 Knee 3+/5 Coordination Assessment Gross Coordination Gross Coordination WNL Sensation Assessment Sensation Gross Sensation Left LE Impaired Light Touch Impaired Sensation Description Numbness Comments Sensation Comments unable to feel light touch on LLE and only felt 3/6 attempts Muscle Tone Muscle Tone WNL Yes M6 PT-IP Treatment Start: 11/25/21 11:29 Freq: NEEDED Status: Active Protocol: Document 11/26/21 11:16 KS (Rec: 11/26/21 12:19 KS [id number]) Physical Therapy Treatment Education Education Provided Safety M7 PT-IP Assessment and Plan Start: 11/25/21 11:29 Freq: NEEDED Status: Active Protocol: Document 11/26/21 11:16 KS (Rec: 11/26/21 12:19 KS [id number]) PT Summary Assessment and Plan Potential Rehabilitation Potential Fair Status of Condition at Evaluation Evolving Summary Impairments Pain,ROM,Strength,Balance, Coordination,Sensation,Tone, Cognition,Bed Mobility, Transfers,Gait,Activity Tolerance Assessment Summary Pt showed improvements w/ mobility today. SBA for bed mobility, transfers, and ambulation w/ and w/o AD. No LOB during ambulation. Pt has FWW at home that she agrees to use initially and for longer distances. She is interested in outpatient PT and states it has been helpful to her in the past. Refused stair training. Goals Bed Mobility Goal Independent Transfer Goal Independent,Front Wheeled Walker Gait Goal Independent,Front Wheel Walker Gait Distance 300 Other Goals improve ambulation without AD ~ 200 ft SBA up/down 4 steps B rails mod I Days to Meet Goals 5 Frequency of Treatment Frequency Of Treatment Once a Day Treatment Plan Physical Therapy Treatment Plan Bed Mobility Training,Transfer Training,Gait Training, Therapeutic Exercise,Balance Retraining,Discharge Planning, Hot or Cold Pack,Neuromuscular Re-ed,Coordination Retraining ,Manual Therapy Recommendations To Nursing Amount of Assist Needed 1 Person Assist Discharge Recommendations PT Discharge Recommendations Home with Assistance, Outpatient PT Transportation Needs at Discharge Private Vehicle
[2021-11-26 12:00] VITALS: BP 116/63; PULSE 64; RESP 16; TEMP 36.7; O2SAT 96
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
== END 2021-11-26 14:24 | disposition home or self-care (01) ==
LOC: ED 23:31 → AC 23:33
PROVIDERS: Emergency Medicine; Family Medicine; Admitting Provider Nurse Practitioner Family; Emergency Provider Nurse Practitioner Family; PCP Nurse Practitioner; Visit Provider Nurse Practitioner Family
DX: R51.9 Headache, unspecified (principal); R06.02 Shortness of breath; R53.1 Weakness; R29.701 NIHSS score 1; W18.30XA Fall on same level, unspecified, initial encounter; Y92.89 Other specified places as the place of occurrence of the external cause; I10 Essential (primary) hypertension; E66.01 Morbid (severe) obesity due to excess calories; Z68.43 Body mass index [BMI] 50.0-59.9, adult; E78.5 Hyperlipidemia, unspecified; C50.919 Malignant neoplasm of unspecified site of unspecified female breast; Z20.822 Contact with and (suspected) exposure to COVID-19
CPT/HCPCS: 36415; 70450; 70496; 70498; 70551; 71045; 80053; 80061; 81001; 81025; 82550; 83735; 83880; 84484; 85025; 85379; 87086; 87635; 93005; 93010; 93880; 96361; 96372; 96374; 96375; 96376; 97116; 97129; 97162; 97166; 99284; C9803; G0378; J0780; J1170; J1200; J1650; J1885; J2060; J2270; J2405

== ENCOUNTER 2021-12-19 21:18 | Emergency (ER) | payer MEDICAID, SELFPAY ==
[2021-11-25 17:15] VITALS: BMI 53.5
[2021-12-19 21:15] VITALS: BP 128/69; PULSE 106; RESP 18; O2SAT 94; BMI 54.9
--- NOTE | 2021-12-19 21:37 | ED_ITS ---
HPI - Allergic Reaction General Chief complaint: Allergic Reaction Stated complaint: Allergic reaction Time Seen by Provider: 12/19/21 21:27 History of Present Illness HPI narrative: 36-year-old female with history of TIA and breast cancer presents by EMS for evaluation of severe allergic reaction. 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 She had nausea but denies any vomiting or diarrhea. She had access to epinephrine and administered an EpiPen prior to calling EMS and a 2nd was administered shortly after arrival. Patient has significant improvement by the time they had gotten here. She has no rash and denies any exposure to other possible or known triggers Related Data Home Medications Medication Instructions Recorded Confirmed albuterol sulfate 90 mcg/actuation 1 puff inhalation PRN PRN 06/16/21 11/25/21 aerosol inhaler Shortness Of Breath Or Wheezing aspirin 81 mg chewable tablet 81 mg PO DAILY 06/16/21 11/25/21 atorvastatin 40 mg tablet 40 mg PO BEDTIME 06/16/21 11/25/21 exemestane 25 mg tablet 25 mg PO BEDTIME 06/16/21 11/25/21 gabapentin 300 mg capsule 900 mg PO TID 06/16/21 11/25/21 hydrocodone 10 mg-acetaminophen 1 tab PO BEDTIME 06/16/21 11/25/21 325 mg tablet ibuprofen 600 mg tablet 600 mg PO BEDTIME 06/16/21 11/25/21 Previous Rx's Medication Instructions Recorded hydrocodone 5 mg-acetaminophen 325 1 tab PO Q8H PRN pain #10 tabs 11/26/21 mg tablet epinephrine 0.3 mg/0.3 mL 0.3 mg (0.3 mL) IM Q5-15M PRN 12/20/21 injection, auto-injector (EpiPen anaphylaxis #2 ea 2-Tenzin) prednisone 20 mg tablet 20 mg PO DAILY #5 tabs 12/20/21 Allergies Allergy/AdvReac Type Severity Reaction Status Date / Time vancomycin Allergy Unknown Verified 08/16/21 09:06 avocado Allergy Anaphylaxis Verified 08/16/21 09:06 citalopram Allergy Hives Verified 08/16/21 09:06 hydroxyzine Allergy Hives Verified 08/16/21 09:06 phenazopyridine Allergy Hives Verified 08/16/21 09:06 ketamine AdvReac Hallucinati Verified 08/16/21 09:06 ng Review of Systems Review of Systems Narrative: GENERAL: Denies chills, fatigue, malaise, fever, sweats. HEENT: See HPI RESPIRATORY: See HPI CARDIOVASCULAR: Denies chest pain, palpitations, orthopnea, edema, GASTROINTESTINAL: Denies nausea, vomiting, abdominal pain, diarrhea, constipation, melena. : Denies dysuria, frequency, incontinence, hematuria, urinary retention. MUSCULOSKELETAL: denies weakness, joint pain, or bony pain SKIN: Denies rash, skin lesions, or other NEUROLOGIC: Denies weakness, headache, numbness, change in speech, confusion, seizures, incoordination. PSYCHIATRIC: No concerning psychosocial issues. 12 point review of systems is negative except for those stated above Patient History Medical History Breast cancer, right breast Social History household members: other Smoking Status: Never smoker alcohol intake: current Smoking Status: Never smoker alcohol intake frequency: holidays/special occasions only Substance Use Type: does not use Exam Narrative Exam Narrative: GENERAL: [36] year old patient appears stated age. Well-developed patient, in mild distress. Anxious HEAD: Atraumatic. Normocephalic. EYES: Pupils equal round and reactive. Extraocular motions intact. No scleral icterus. No injection or drainage. ENT: Nose without bleeding, purulent drainage. Throat without erythema, tonsillar hypertrophy or exudate. Airway patent. No facial, lip, tongue or throat swelling noted NECK: Trachea midline. Non tender CARDIOVASCULAR: Regular rate and rhythm without murmurs, gallops, or rubs. RESPIRATORY: Faint expiratory wheeze, no significant increased work of breathing GASTROINTESTINAL: Abdomen soft, non-tender, nondistended. EXTREMITIES: No edema or joint tenderness. BACK: Nontender without deformity or crepitance. No flank tenderness. NEURO: AOx3. SKIN: No rash or erythema of visible areas Initial Vital Signs Initial Vital Signs: Vital Signs Pulse Rate 106 H 12/19/21 21:15 Respiratory Rate 18 12/19/21 21:15 Blood Pressure 128/69 12/19/21 21:15 Pulse Oximetry 94 12/19/21 21:15 Oxygen Delivery Method 12/19/21 21:15 Course Course Course Narrative: Patient had mild if any symptoms over the duration of her for our visit. She was given H1, H2, and steroid and observed for multiple hours without any return of symptoms. She is been given return precautions and questions answered to her apparent satisfaction Orders Ordered: ED Orders 12/19/21 21:55 EKG-12 Lead Stat Famotidine (Famotidine 20 Mg/2 Ml Vial) 20 mg IV NOW DEDRICK Last Admin: 12/19/21 21:41 Dose: 20 mg Documented By: ROBY Discontinued Medications Acetaminophen (Acetaminophen 325 Mg Tablet) 975 mg PO NOW ONE Stop: 12/20/21 00:21 Last Admin: 12/20/21 00:55 Dose: 975 mg Documented By: ROBY Dexamethasone (Dexamethasone 10 Mg/Ml Vial) 10 mg IV NOW ONE Stop: 12/19/21 21:28 Last Admin: 12/19/21 21:42 Dose: 10 mg Documented By: ROBY Diphenhydramine HCl (Diphenhydramine 50 Mg/Ml Vial) 50 mg IV NOW ONE Stop: 12/19/21 21:28 Last Admin: 12/19/21 21:32 Dose: Not Given Documented By: ROBY Sodium Chloride (Normal Saline 0.9%) 1,000 mls @ 1,000 mls/hr IV BOLUS ONE Stop: 12/20/21 01:20 Last Infusion: 12/20/21 01:49 Dose: 0 mls/hr Documented By: Admin: 12/20/21 00:55 Dose: 1,000 mls/hr Documented By: ROBY Ketorolac Tromethamine (Ketorolac 30 Mg/Ml Vial) 15 mg IV NOW ONE Stop: 12/20/21 00:22 Last Admin: 12/20/21 00:55 Dose: 15 mg Documented By: ROBY Vital Signs Vital signs: Vital Signs - 8 hr 12/19/21 21:15 12/19/21 22:03 12/19/21 22:30 Pulse Rate 106 H 87 83 Respiratory Rate 18 22 23 Blood Pressure 128/69 Pulse Oximetry 94 97 Oxygen Delivery Method Room Air 12/19/21 23:00 12/19/21 23:08 12/19/21 23:08 Pulse Rate 84 84 Respiratory Rate 21 21 Blood Pressure 128/56 L Pulse Oximetry 96 Oxygen Delivery Method 12/19/21 23:30 12/19/21 23:30 12/20/21 00:00 Pulse Rate 90 83 Respiratory Rate 21 19 Blood Pressure 128/62 Pulse Oximetry 95 94 Oxygen Delivery Method 12/20/21 00:01 12/20/21 00:01 12/20/21 00:30 Pulse Rate 81 92 H Respiratory Rate 21 18 Blood Pressure 136/57 L Pulse Oximetry 95 95 Oxygen Delivery Method 12/20/21 00:31 12/20/21 00:31 12/20/21 01:06 Pulse Rate 74 87 Respiratory Rate 22 Blood Pressure 149/80 H Pulse Oximetry 95 95 Oxygen Delivery Method Discharge Plan Departure Patient Disposition: Home Clinical Impression: Anaphylaxis Instructions: DI for Anaphylaxis Activity Restrictions/Additional Instructions: *You have been diagnosed with [anaphylaxis] *What to do: *Please continue to take your regular medications as directed. [ x] New medication prescriptions sent to your pharmacy: [ [address] [place]] [ ] New medication written as a paper prescription [ ] No new medications given *Please follow up with your primary care provider in 2-3 days, call for an appointment. Let them know you were seen in the Emergency Department and that we ask that you be seen in follow up. We will electronically transmit a record of today's note if your PCP is in our system *If you do not have a primary care provider please contact the [facility] Resource line at [phone]. They will ask some questions about your medical history and help get you set up with a doctor in the community. *Return to Emergency Department if you should have any new, worsening or concerning symptoms, such as [fever greater than 101 F, shaking chills, worsening pain, persistent vomiting or other bothersome symptoms] Prescriptions: New prednisone 20 mg tablet 20 mg PO DAILY Qty: 5 0RF Rx Instructions: administer with food or milk epinephrine [EpiPen 2-Tenzin] 0.3 mg/0.3 mL auto-injector 0.3 mg IM Q5-15M PRN (Reason: anaphylaxis) Qty: 2 0RF Rx Instructions: do not exceed 3 doses per episode No Action gabapentin 300 mg capsule 900 mg PO TID Label Comments: Take 3 capsules (900mg) by mouth twice daily and 4 capsules (1200mg) daily at night aspirin 81 mg tablet,chewable 81 mg PO DAILY Label Comments: Take 1 tablet (81 mg total) by mouth daily Chewable. albuterol sulfate 90 mcg/actuation HFA aerosol inhaler 1 puff INHALATION PRN PRN (Reason: Shortness Of Breath Or Wheezing) Label Comments: Inhale 2 puffs into the lungs every 6 (six) hours as needed for Wheezing or Shortness of Breath atorvastatin 40 mg tablet 40 mg PO BEDTIME Label Comments: Take 1 tablet (40 mg total) by mouth nightly exemestane 25 mg tablet 25 mg PO BEDTIME Label Comments: Take (1) tablet by mouth once daily. hydrocodone-acetaminophen 10-325 mg tablet 1 tab PO BEDTIME Label Comments: Take 1 tablet by mouth nightly as needed for moderate pain ibuprofen 600 mg tablet 600 mg PO BEDTIME Label Comments: Take 1 tablet (600 mg total) by mouth nightly as needed for mild pain hydrocodone-acetaminophen 5-325 mg tablet 1 tab PO Q8H PRN (Reason: pain) Qty: 10 0RF Referrals: Mariposa Montes ARNP [Primary Care Provider] - Stand Alone Forms: Work Release Note Visit Report Forms: Patient Portal/API
[2021-12-19] MEDS: FAMOTIDINE 20 MG/2 ML VIAL IV (21:41)
[2021-12-19] MEDS: DEXAMETHASONE 10 MG/ML VIAL IV (21:42)
[2021-12-19 22:03] VITALS: PULSE 87; RESP 22; O2SAT 97
[2021-12-19 22:30] VITALS: PULSE 83; RESP 23
[2021-12-19 23:00] VITALS: PULSE 84; RESP 21
[2021-12-19 23:08] VITALS: BP 128/56; PULSE 84; RESP 21; O2SAT 96
[2021-12-19 23:30] VITALS: BP 128/62; PULSE 90; RESP 21; O2SAT 95
[2021-12-20] VITALS: PULSE 83; RESP 19; O2SAT 94
[2021-12-20 00:01] VITALS: BP 136/57; PULSE 81; RESP 21; O2SAT 95
[2021-12-20 00:30] VITALS: PULSE 92; RESP 18; O2SAT 95
[2021-12-20 00:31] VITALS: BP 149/80; PULSE 74; RESP 22; O2SAT 95
[2021-12-20] MEDS: ACETAMINOPHEN 325 MG TABLET 975 MG PO (00:55)
[2021-12-20] MEDS: SODIUM CHLORIDE 0.9% 1,000 ML 1000 ML IV (00:55)
[2021-12-20] MEDS: KETOROLAC 30 MG/ML VIAL 15 MG IV (00:55)
[2021-12-20 01:06] VITALS: PULSE 87; O2SAT 95
== END 2021-12-20 02:00 | disposition home or self-care (01) ==
PROVIDERS: Emergency Provider Emergency Medicine; PCP Nurse Practitioner
DX: T78.04XA Anaphylactic reaction due to fruits and vegetables, initial encounter (principal)
CPT/HCPCS: 93005; 96361; 96374; 96375; 99284; J1100; J1885

== ENCOUNTER 2022-08-31 09:22 | Emergency (ER) | payer MEDICAID, SELFPAY ==
[2021-11-25 17:15] VITALS: BMI 53.5
[2022-08-31] VITALS (22 sets, daily range): BP systolic 111–138; BP diastolic 59–82; PULSE 68–104; RESP 12–78; TEMP 36.3; O2SAT 93–100; BMI 52.9
--- NOTE | 2022-08-31 09:58 | ED_ITS ---
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 She states she was cleaning the resident got some shampoo on her arm she states she did not really notice at the time but did note that it had avocado oil in the shampoo and patient states she has anaphylaxis auto. Patient states she shortly thereafter started feeling very shaky she felt tight in her throat, she felt like she needed to vomit and was having tightness and feeling like short of breath in her chest. She used her EpiPen and had minimal improvement, EMS was contacted arrived and had a 2nd dose of epi which he states has been helpful. She states the tightness in her throat never totally went away but is better. She states she had some rash and hives on her neck and chest which she states have gotten a little bit better. She is starting to feel more shaky and generally unwell. She states this all happened abruptly after this exposure. Patient states she is never been intubated before but has had repeated doses of epinephrine and often requires to for her symptoms. She did not receive any Benadryl or steroids in the field. Patient states that she does not tolerate Benadryl IV makes her feel very weird but she tolerates oral Benadryl typically. Patient states she did take her home medication extended-release morphine this morning which she normally takes an 8:00 a.m.. Related Data Home Medications Medication Instructions Recorded Confirmed albuterol sulfate 90 mcg/actuation 1 puff inhalation PRN PRN 06/16/21 08/31/22 aerosol inhaler Shortness Of Breath Or Wheezing aspirin 81 mg chewable tablet 81 mg PO DAILY 06/16/21 11/25/21 atorvastatin 40 mg tablet 40 mg PO BEDTIME 06/16/21 11/25/21 exemestane 25 mg tablet 25 mg PO BEDTIME 06/16/21 11/25/21 gabapentin 300 mg capsule 900 mg PO TID 06/16/21 11/25/21 hydrocodone 10 mg-acetaminophen 1 tab PO BEDTIME 06/16/21 11/25/21 325 mg tablet ibuprofen 600 mg tablet 600 mg PO BEDTIME 06/16/21 11/25/21 Previous Rx's Medication Instructions Recorded hydrocodone 5 mg-acetaminophen 325 1 tab PO Q8H PRN pain #10 tabs 11/26/21 mg tablet epinephrine 0.3 mg/0.3 mL 0.3 mg (0.3 mL) IM Q5-15M PRN 12/20/21 injection, auto-injector (EpiPen anaphylaxis #2 ea 2-Tenzin) epinephrine 0.3 mg/0.3 mL 0.3 mg (0.3 mL) IM Q5-15M PRN 08/31/22 injection, auto-injector (EpiPen anaphylaxis #2 ea 2-Tenzin) famotidine 20 mg tablet (Pepcid) 20 mg PO BID #10 tabs 08/31/22 prednisone 20 mg tablet 20 mg PO DAILY #5 tabs 08/31/22 prednisone 20 mg tablet 20 mg PO DAILY #5 tabs 08/31/22 Allergies Allergy/AdvReac Type Severity Reaction Status Date / Time vancomycin Allergy Unknown Verified 08/31/22 09:35 avocado Allergy Anaphylaxis Verified 08/31/22 09:35 citalopram Allergy Hives Verified 08/31/22 09:35 hydroxyzine Allergy Hives Verified 08/31/22 09:35 phenazopyridine Allergy Hives Verified 08/31/22 09:35 ketamine AdvReac Hallucinati Verified 08/31/22 09:35 ng Review of Systems Review of Systems ROS Unobtainable: All systems reviewed & are unremarkable except as noted in HPI and below Patient History Medical History (Updated 08/31/22 @ 14:05 by Hortencia Moses DO) Anxiety Asthma Breast cancer, right breast Heart failure Morbid obesity with BMI of 50.0-59.9, adult Personal history of Methicillin resistant Staphylococcus aureus infection Secondary malignant neoplasm of lung Sleep apnea Social History household members: other Smoking Status: Never smoker alcohol intake: current Smoking Status: Never smoker alcohol intake frequency: holidays/special occasions only Substance Use Type: does not use Exam Narrative Exam Narrative: GEN: Obese female, alert and oriented x 3, patient appears to be in [id number] distress, patient is slightly tremulous. HEENT: Atraumatic, pupils are equal round reactive to light, extraocular movements are intact, nares are clear. Throat is clear without any exudates, erythema, tonsillar enlargement or uvular deviation, no stridor, no accessory muscle use, no swelling of lips, tongue or airway. Clear speech. HEART: Regular rate and rhythm without murmur, clicks, rubs. Pulses are equal in upper and lower extremities LUNGS:Lungs clear to auscultation, no wheezes, rales, crackles, chest moves symmetrically, no tachypnea or accessory muscle use. ABD:bowel sounds normal, soft, non-tender, no guarding, rebound, rigidity, no m asses noted, no hepatosplenomegaly :No CVA tenderness MSCL: Non-tender, no muscle atrophy, muscles strength 5/5 upper and lower extremities, full range of motion. NEURO:CN 2-12 intact, sensation normal. SKIN: Patient has some slight red flushed in the face and cheeks no hives, no rash or skin changes elsewhere. Initial Vital Signs Initial Vital Signs: Vital Signs Pulse Rate 104 H 08/31/22 09:24 Blood Pressure 117/71 08/31/22 09:24 Pulse Oximetry 99 08/31/22 09:24 Course Orders Ordered: Discontinued Medications Diphenhydramine HCl (Diphenhydramine 25 Mg Tablet) 50 mg PO NOW ONE Stop: 08/31/22 10:06 Last Admin: 08/31/22 10:27 Dose: 50 mg Documented By: MEDARDO Famotidine (Famotidine 20 Mg/2 Ml Vial) 20 mg IV NOW DEDRICK Last Admin: 08/31/22 10:48 Dose: 20 mg Documented By: MEDARDO Hydromorphone HCl (Hydromorphone 4 Mg Tablet) 4 mg PO NOW ONE Stop: 08/31/22 11:00 Last Admin: 08/31/22 12:14 Dose: Not Given Documented By: MEDARDO Sodium Chloride (Normal Saline 0.9%) 1,000 mls @ 1,000 mls/hr IV BOLUS ONE Stop: 08/31/22 11:04 Last Infusion: 08/31/22 12:26 Dose: 0 mls/hr Documented By: Admin: 08/31/22 10:48 Dose: 1,000 mls/hr Documented By: MEDARDO Methylprednisolone (Methylprednisolone 125 Mg/2 Ml Vial) 125 mg IV NOW ONE Stop: 08/31/22 10:06 Last Admin: 08/31/22 10:48 Dose: 125 mg Documented By: MEDARDO Morphine Sulfate (Morphine 4 Mg/Ml Inj) 4 mg IV NOW ONE Stop: 08/31/22 12:30 Last Admin: 08/31/22 12:32 Dose: 4 mg Documented By: BRAD Vital Signs Vital signs: Vital Signs - 8 hr 08/31/22 09:45 08/31/22 09:45 08/31/22 10:00 Pulse Rate 100 H Respiratory Rate Blood Pressure 111/59 L 123/66 Pulse Oximetry 98 Oxygen Delivery Method 08/31/22 10:00 08/31/22 10:50 08/31/22 10:51 Pulse Rate 100 H 93 H Respiratory Rate Blood Pressure 125/71 Pulse Oximetry 99 93 Oxygen Delivery Method 08/31/22 10:51 08/31/22 11:00 08/31/22 11:00 Pulse Rate 93 H 96 H Respiratory Rate 14 Blood Pressure 120/68 Pulse Oximetry 99 98 Oxygen Delivery Method Room Air 08/31/22 12:32 08/31/22 12:34 08/31/22 12:34 Pulse Rate 88 82 Respiratory Rate 78 H 12 Blood Pressure 129/77 Pulse Oximetry 99 Oxygen Delivery Method 08/31/22 12:45 08/31/22 12:45 08/31/22 13:00 Pulse Rate 87 Respiratory Rate 34 H Blood Pressure 136/77 136/78 Pulse Oximetry 99 Oxygen Delivery Method 08/31/22 13:00 08/31/22 13:15 08/31/22 13:15 Pulse Rate 87 85 Respiratory Rate 22 21 Blood Pressure 134/74 Pulse Oximetry 96 95 Oxygen Delivery Method 08/31/22 13:30 08/31/22 13:30 08/31/22 13:45 Pulse Rate 86 Respiratory Rate 21 Blood Pressure 138/77 119/73 Pulse Oximetry 96 Oxygen Delivery Method 08/31/22 13:45 08/31/22 14:00 08/31/22 14:00 Pulse Rate 100 H 84 Respiratory Rate 19 21 Blood Pressure 132/82 Pulse Oximetry 95 93 Oxygen Delivery Method 08/31/22 14:07 08/31/22 14:07 08/31/22 14:15 Pulse Rate 88 Respiratory Rate 17 Blood Pressure 131/82 134/82 Pulse Oximetry 97 Oxygen Delivery Method 08/31/22 14:15 08/31/22 14:30 08/31/22 14:30 Pulse Rate 75 74 Respiratory Rate 16 19 Blood Pressure 131/82 Pulse Oximetry 96 96 Oxygen Delivery Method Room Air 08/31/22 14:45 08/31/22 14:45 08/31/22 15:00 Pulse Rate 77 Respiratory Rate 21 Blood Pressure 122/76 127/79 Pulse Oximetry 96 Oxygen Delivery Method 08/31/22 15:00 08/31/22 15:15 08/31/22 15:15 Pulse Rate 69 68 Respiratory Rate 22 23 Blood Pressure 120/78 Pulse Oximetry 96 96 Oxygen Delivery Method MDM - Allergic Reaction MDM Narrative Medical decision making narrative: This is a 36-year-old female with history of avocado allergy who developed allergy like symptoms shortly after being exposed to shampoo that contains avocado oil. Patient was at work she used her EpiPen had limited improvement of symptoms and received a 2nd dose of epinephrine with EMS and had improvement but not complete resolution. She still feels kind of shaky. She had not received any other treatments in the field such as Benadryl or steroids. Plan for Benadryl p.o. she states IV Benadryl makes her feel very weird she would like to avoid it, IV Solu-Medrol, Pepcid and observation. Patient notes that she is had some rebound type anaphylactic symptoms in the past. She does have symptom comes other medical issues. Patient received medications including Pepcid, fluids, Solu-Medrol IV and Benadryl oral as she does not tolerate IV Benadryl very well she states it makes her feel very anxious. Patient on recheck walked to the bathroom and back. She feels little short of breath. She is due for her home dose of pain medication. Patient monitored for approximately 5+ hours, patient had some periods where she felt a little short of breath while resting but states not any worsening swelling airway changes, patient is clear on examination, she is walked back and forth to the bathroom without issue several times. After additional monitoring patient is felt safe for discharge home. Plan for oral prednisone, Benadryl as needed, Pepcid which she states she has taken at home in the past and refill her EpiPen as she thinks she is out. Strict return precautions. All questions answered. Discharge Plan Departure Patient Disposition: Home Clinical Impression: Anaphylaxis Instructions: DI for Anaphylaxis Activity Restrictions/Additional Instructions: Please follow-up with your physician for recheck. I hope you continue to feel better this week Take prednisone 1 tablet daily until gone. You can take Benadryl 1-2 tablets every 6 hours as needed if you find it helpful but is not required. Prescription sent to [facility] [address] You may continue your home medications as prescribed. Please return for new or worsening symptoms, recurrent difficulty breathing, airway swelling, lips, tongue, mouth, stridor or voice changes, persistent vomiting or other new or concerning changes. Prescriptions: New prednisone 20 mg tablet 20 mg PO DAILY Qty: 5 0RF famotidine [Pepcid] 20 mg tablet 20 mg PO BID Qty: 10 0RF epinephrine [EpiPen 2-Tenzin] 0.3 mg/0.3 mL auto-injector 0.3 mg IM Q5-15M PRN (Reason: anaphylaxis) Qty: 2 0RF Rx Instructions: do not exceed 3 doses per episode prednisone 20 mg tablet 20 mg PO DAILY Qty: 5 0RF No Action gabapentin 300 mg capsule 900 mg PO TID Patient Comments: Take 3 capsules (900mg) by mouth twice daily and 4 capsules (1200mg) daily at night aspirin 81 mg tablet,chewable 81 mg PO DAILY Patient Comments: Take 1 tablet (81 mg total) by mouth daily Chewable. albuterol sulfate 90 mcg/actuation HFA aerosol inhaler 1 puff INHALATION PRN PRN (Reason: Shortness Of Breath Or Wheezing) Patient Comments: Inhale 2 puffs into the lungs every 6 (six) hours as needed for Wheezing or Shortness of Breath atorvastatin 40 mg tablet 40 mg PO BEDTIME Patient Comments: Take 1 tablet (40 mg total) by mouth nightly exemestane 25 mg tablet 25 mg PO BEDTIME Patient Comments: Take (1) tablet by mouth once daily. hydrocodone-acetaminophen 10-325 mg tablet 1 tab PO BEDTIME Patient Comments: Take 1 tablet by mouth nightly as needed for moderate pain ibuprofen 600 mg tablet 600 mg PO BEDTIME Patient Comments: Take 1 tablet (600 mg total) by mouth nightly as needed for mild pain hydrocodone-acetaminophen 5-325 mg tablet 1 tab PO Q8H PRN (Reason: pain) Qty: 10 0RF epinephrine [EpiPen 2-Tenzin] 0.3 mg/0.3 mL auto-injector 0.3 mg IM Q5-15M PRN (Reason: anaphylaxis) Qty: 2 0RF Rx Instructions: do not exceed 3 doses per episode Referrals: Mariposa Montes ARNP [Primary Care Provider] - Stand Alone Forms: Patient Portal/API
[2022-08-31] MEDS: diphenhydrAMINE 25 MG TABLET 50 MG PO (10:27)
[2022-08-31] MEDS: SODIUM CHLORIDE 0.9% 1,000 ML 1000 ML IV (10:48)
[2022-08-31] MEDS: FAMOTIDINE 20 MG/2 ML VIAL IV (10:48)
[2022-08-31] MEDS: methylPREDNISolone 125 MG/2 ML VIAL IV (10:48)
[2022-08-31] MEDS: MORPHINE 4 MG/ML INJ IV (12:32)
== END 2022-08-31 15:26 | disposition home or self-care (01) ==
PROVIDERS: Emergency Provider Emergency Medicine; PCP Nurse Practitioner
DX: T78.04XA Anaphylactic reaction due to fruits and vegetables, initial encounter (principal); R06.02 Shortness of breath
CPT/HCPCS: 96361; 96374; 96375; 99284; J2270; J2930